=== PATIENT | male | born 1965 | race Caucasian/White ===

== ENCOUNTER 2024-12-20 13:25 | Emergency (ER) | payer OTHER, BC, SELFPAY ==
[2024-12-20 13:27] VITALS: BP 124/85; PULSE 93; RESP 18; TEMP 36.9; O2SAT 93; BMI 31.6
--- OUTSIDE RECORDS SUMMARY | 2024-12-20 13:28 | XMS_ITS | Encounter Summary ---
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 [facility] Address [address] [place] [address] Care Team Providers Care Store Consultant Name Role Phone PAULA WHITLEY Primary Care Provider Mark mead Insurance Providers: All historical and current Section Date Range: From patient's date of to the date document was created. This section includes the names of all active insurance providers for the patient. Insurance Provider Type of Coverage Plan Name Start of Policy Coverage End of Policy Coverage Group Number Member ID Insurance Provider's Telephone Number Policy Ragland's Name Patient's Relationship to Policy Ragland [place] W/HEALTH SAVINGS [facility]OUNT [facility] Aug 22, 2020 [id number] [phone] HARPREET LOPEZ PATIENT [place] H[place]AN W/HEALTH SAVINGS ACCOUNT [facility] Aug 22, 2020 [id number] [phone] HARPREET LOPEZ PATIENT [place] ([id number]) PRESCRIPT SHARATH YEUNG M RX [facility] Aug 22, 2020 [id number] [phone] HARPREET LOPEZ PATIENT [place] ([id number]) PRESCRIPT SHARATH YEUNG M RX [facility] Aug 22, 2020 [id number] [phone] HARPREET LOPEZ PATIENT Selected Encounter This section includes the information on record at [place] for the Encounter. Date/Time Encounter Type Encounter Description Reason Provider Source Mar 19, 2024 08:32 AM Outpatient Encounter AMBULATORY ALEX HENDERSON Encounter Template Text not used by [facility] Plan of Treatment: Future Appointments (+ 6 months) and Future Tests (+/- 45 days) The Plan of Treatment section includes [facility] care activities for the [facility] [place] [facility] This section includes future appointments and future orders which are active, pending or scheduled. Future Appointments This section includes appointments that were scheduled to occur 6 months from the date of the Encounter, up to a maximum of 20 appointments. The data comes from all [place] treatment facilities. Appointment Date/Time Appointment Type Appointme nt Facility Name 2024 11:00 AM AMBULATORY - SURGERY [facility] Apr 06, 2024 02:00 PM AMBULATORY - SURGERY [facility] Jun 26, 2024 02:48 PM AMBULATORY - NONE [facility] Jun 28, 2024 09:30 AM [facility]BUL[facility]ORY - MEDICINE [facility] Jul 10, 2024 06:17 PM AMBULATORY - MEDICINE [facility] Jul 21, 2024 01:14 PM AMBULATORY - MEDICINE [facility] Jul 25, 2024 09:00 AM AMBULATORY - MEDICINE [facility] Jul 25, 2024 09:30 AM AMBULATORY - SURGERY [facility] Aug 17, 2024 10:00 AM AMBULATORY - NONE [facility] Lab Results: +/- 30 days of the encounter This section includes the Chemistry and Hematology Lab Results on record with [place] for the patient. Radiology Reports and Pathology Reports are provided separately, in subsequent sections. Lab Results This section contains the Chemistry/Hematology Results that were resulted 30 days before or 30 daysafter the date of the Encounter. Date/Time Source Result Type Result - Unit Interpretation Reference Range Specimen Type Comment Mar 07, 2024 02:41 PM [facility] PROTHROMBIN TIME/INR PLASMA Specimen Type: PLASMA No comment entered. Ordering Provider: THIEN LOBATO Report Released Date/Time: Mar 01, 2024 07:49 AM Reporting Lab: [facility] [id number] Performing Lab: [facility] [id number] .INR 1.0 0.8-1.1 .PT 12.1 s 9.4-12.5 Mar 07, 2024 02:41 PM [facility] BASIC METABOLIC PANEL+MG PLASMA Spe cimen Type: PLASMA No comment entered. Ordering Provider: THIEN LOBATO Report Released Date/Time: Mar 01, 2024 07:49 AM Reporting Lab: [facility] [id number] Performing Lab: [facility] [id number] CREATININE 1.0 mg/dL 0.7-1.2 UREA NITROGEN 18 mg/dL 8-26 GLUCOSE 62 mg/dL L 70-100 SODIUM 140 mmol/L 136-145 POTASSIUM 4.1 mmol/L 3.5-5.1 CHLORIDE 111 mmol/L H 98-107 CO2 22 mmol/L 22-29 CALCIUM 9.2 mg/dL 8.4-10.2 MAGNESIUM 2.0 mg/dL 1.6-2.6 ANION GAP 7 mmol/L 5-15 .CREAT EGFR(CKD-EPI) 88 >60 Mar 07, 2024 02:41 PM [facility] ALBUMIN PLASMA Specimen Type: PLASMA No comment entered. Ordering Provider: THIEN LOBATO Report Released Date/Time: Mar 01, 2024 07:49 AM Reporting Lab: [facility] [phone] Performing Lab: [facility] [address] ALBUMIN 4.2 g/dL 3.5-5.2 Mar 07, 2024 02:41 PM [facility] CBC & DIFF BLOOD Specimen Type : BLOOD Comment: Automated Differential Performed Ordering Provider: THIEN LOBATO Report Released Date/Time: Mar 01, 2024 07:49 AM Reporting Lab: [facility] [phone] Performing Lab: [facility] [phone] WBC 7.18 10*3/uL 4.0-11.0 RBC 4.69 10*6/uL 4.6-6.2 HGB 14.1 g/dL 13.5-17.9 HCT 40.4 L 41-54 MCV 86.1 fL 80-100 MCH 30.1 pg 27-33 MCHC 34.9 g/dL 32.0-37.5 PLT 194 10*3/uL 150-400 MPV 9.8 fL 7.4-10.4 NEUT 66.5 40.0-80.0 LYMPHS 21.7 15.0-45.0 MONO 6.8 2.0-12.0 EOSINO 4.0 0.0-6.0 BASO 0.7 0.0-2.0 RDW 14.3 11.5-14.5 ABS LYMPH 1.56 10*3/uL 1.0-4.0 ABS MONO 0.49 10*3/uL 0.1-1.0 ABS NEUT 4.77 10*3/uL 2.0-7.7 ABS EOS 0.29 10*3/uL 0-0.5 ABS BASO 0.05 10*3/uL 0-0.2 IG(META,MYELO,PRO) 0.3 ABS IMMATURE GRAN 0.02 10*3/uL 0-0.1 Mar 07, 2024 02:41 PM [facility] HEMOGLOBIN A1C BLOOD Specimen Type: BLOOD Comment: Values obtained from A1C measurements can vary. For typical A1C assays, a reported value of 7.0 could actually be between 6.7 and 7.3 if measured by a reference method. A reported value of 9.0 could actually be between 8.7 and 9.3. Ref: http://www.ngsp.org/CAPdata.[email or web address] Ordering Provider: THIEN LOBATO Report Released Date/Time: Mar 01, 2024 07:49 AM Reporting Lab: [facility] [phone] Performing Lab: [facility] [phone] HEMOGLOBIN A1C 5.4 4.0-6.0 Vital Signs: All taken on the encounter date This section contains inpatient and outpatient Vital Signs collected on the date of the Encounter. Date/Time Temperature Pulse Blood Pressure Respiratory Rate SP02 Pain Height Weight Body Mass Index Source Mar 19, 2024 10:05 AM 98.1 77 102/61 16 93 0 [facility] Mar 19, 2024 06:58 AM 98.2 72 131/74 18 94 2 [facility] Pathology Reports: +/- 30 days of the encounter Pathology Reports For cases when an order for pathology services may have been completed prior to the date of the Encounter, the report list includes the Pathology Reports that were completed up to 30 days before dateof the Encounter. For cases when an order for pathology services may have been completed after the date of the Encounter, the report list also includes the Pathology Reports that were completed up to30 days after date of the Encounter. The data comes from all [facility] facilities. Date/Time Pathology Report Provider Source Mar 22, 2024 10:05 AM LR SURGICAL PATHOL [facility] REPORT: LOCAL TITLE: LR SURGICAL PATHOLOGY REPORT STANDARD TITLE: PATHOLOGY REPORT DATE OF NOTE: MAR 22, 2024@10:05:54 ENTRY DATE: MAR 22, 2024@10:05:54 AUTHOR: NITA TOSCANO EXP CELENAIGNER: URGENCY: STATUS: COMPLETED $APHDR Reporting Lab: [facility] [CLIA# [id number]] [place] [address] - - - - - - - - - - - - - - - - - - - - - - - - - - - - - - - - - - - - - - - - MEDICAL RECORD SURGICAL PATHOLOGY - - - - - - - - - - - - - - - - - - - - - - - - - - - - - - - - - - - - - - - - PATHOLOGY REPORT Accession No. [id number] - - - - - - - - - - - - - - - - - - - - - - - - - - - - - - - - - - - - - - - - $TEXT Submitted by: Date obtained: Mar 19, 2024 - - - - - - - - - - - - - - - - - - - - - - - - - - - - - - - - - - - - - - - - Specimen (Received Mar 20, 2024 08:27): LEFT FOOT SUB FIRST - - - - - - - - - - - - - - - - - - - - - - - - - - - - - - - - - - - - - - - - BRIEF CLINICAL HISTORY: Procedure: Removal of bursa left foot - - - - - - - - - - - - - - - - - - - - - - - - - - - - - - - - - - - - - - - - PREOPERATIVE DIAGNOSIS: Plantar bursa - - - - - - - - - - - - - - - - - - - - - - - - - - - - - - - - - - - - - - - - OPERATIVE FINDINGS: - - - - - - - - - - - - - - - - - - - - - - - - - - - - - - - - - - - - - - - - POSTOPERATIVE DIAGNOSIS: Plantar bursa Surgeon/physician: THIEN LOBATO Attending Surgeon: Thien Lobato =-=-=-=-=-=-=-=-=-=-=-=-=- =-=-=-=-=-=-=-=-=-=-=-=-=- =-=-=-=-=-=-=-=-=-=-=-=-=- = - - - - - - - - - - - - - - - - - - - - - - - - - - - - - - - - - - - - - - - - PATHOLOGY REPORT Accession No. [id number] - - - - - - - - - - - - - - - - - - - - - - - - - - - - - - - - - - - - - - - - GROSS DESCRIPTION: The requisition form and specimen(s) identification is confirmed. The specimen is received in formalin labeled left foot subfirst [facility] and consists of an unoriented skin excision of indurated brown-burden skin measuring 3.6 x 1.5 x 0.5 cm. Specimen is oriented by a suture that is arbitrarily designated as 12:00 margin; the 12:00 to 6:00 margin is inked black and the 6:00 to 12:00 margin is inked blue. Also submitted is a deep yellow to brown-burden fibrofatty soft tissue fragment measuring 2.5 x 2.5 x 1.5 cm. Summary of sections: A-C: Cross-sections, skin excision; D: 12:00 tip, en face; E: 6:00 tip, en face; F-G: Deep soft tissue fragment, bisected. CE. (D)[facility] MICROSCOPIC DESCRIPTION: Microscopic examination performed. DIAGNOSIS: Left foot, sub first, excision-- - Fragments of skin and subcutaneous tissue containing a ruptured epithelial inclusion cyst /es/ NITA TOSCANO STAFF PATHOLOGIST, PATHOLOGY & LABORATORY MED [facility] Signed Mar 22, 2024@10:05 Performing Laboratory: Surgical Pathology Report Performed By: [facility] [CLIA# [id number]] [place] [address] $FTR - - - - - - - - - - - - - - - - - - - - - - - - - - - - - - - - - - - - - - - - (End of report) NITA TOSCANO MD rks Date Mar 22, 2024 - - - - - - - - - - - - - - - - - - - - - - - - - - - - - - - - - - - - - - - - JOHN LOPEZ STANDARD FORM 515 ID:[id number] SEX:M :1965 AGE: 58 LOC:[id number] PCP: Paula Whitley /darrick/ NITA TOSCANO STAFF PATHOLOGIST, PATHOLOGY & LABORATORY MED [facility] Signed: 03/22/2024 10:05 NITA TOSCANO [facility] Mar 19, 2024 09:53 AM LR MICROBIOLOGY RE PORT: Reporting Lab: [facility] [CLIA# [id number]] [place] [address] Accession [UID]: [id number] [[id number]] Received: Mar 19, 2024@09:53 Collection sample: TISSUE Collection date: Mar 19, 2024 09:53 Provider: THIEN LOBATO Comment on specimen: 1) L FOOT SUB-FIRST NPJ MASS, RECEIVED IN ANAEROBIC TRANSPORT VIAL Test(s) ordered: ANAEROBIC CULTURE............. completed: Mar 26, 2024 * BACTERIOLOGY FINAL REPORT => Mar 26, 2024 15:04 TECH CODE: [id number] CULTURE RESULTS: NO ANAEROBES ISOLATED Bacteriology Remark(s): THIS REPORT IS FINAL =--=--=--=--=--=--=--=--=- -=--=--=--=--=--=--=--=--= --=--=--=--=--=--=--=--=-- Performing Laboratory: Bacteriology Report Performed By: [facility] [CLIA# [id number]] [place] [address] [facility] Mar 19, 2024 09:53 AM LR MICROBIOLOGY RE PORT: Reporting Lab: [facility] [CLIA# [id number]] [place] [address] Accession [UID]: [id number] [[id number]] Received: Mar 19, 2024@09:53 Collection sample: TISSUE Collection date: Mar 19, 2024 09:53 Provider: THIEN LOBATO Comment on specimen: 1) L FOOT SUB-FIRST NPJ MASS, RECEIVED IN ANAEROBIC TRANSPORT VIAL Test(s) ordered: KANDACE FUNGAL PREP............... completed: Mar 19, 2024 13:46 MYCOLOGY CULTURE.............. completed: Apr 17, 2024 * MYCOLOGY FINAL REPORT => Apr 17, 2024 10:19 TECH CODE: [id number] MYCOLOGY SMEAR/PREP: KANDACE PREP: NO FUNGAL ELEMENTS SEEN CULTURE PENDING Fungus/Yeast: NO FUNGI ISOLATED (4 WEEKS) Mycology Remark(s): THIS REPORT IS FINAL =--=--=--=--=--=--=--=--=- -=--=--=--=--=--=--=--=--= --=--=--=--=--=--=--=--=-- Performing Laboratory: Mycology Report Performed By: [facility] [CLIA# [id number]] [place] [address] [facility] Mar 19, 2024 09:53 AM LR MICROBIOLOGY RE PORT: Reporting Lab: [facility] [CLIA# [id number]] [place] [address] Accession [UID]: [id number] [[id number]] Received: Mar 19, 2024@09:53 Collection sample: TISSUE Collection date: Mar 19, 2024 09:53 Provider: THIEN LOBATO Comment on specimen: 1) L FOOT SUB-FIRST NPJ MASS, RECEIVED IN ANAEROBIC TRANSPORT VIAL Test(s) ordered: GRAM STAIN.................... completed: Mar 19, 2024 11:45 CULTURE & SUSCEPTIBILITY...... completed: Mar 23, 2024 * BACTERIOLOGY FINAL REPORT => Mar 23, 2024 13:49 TECH CODE: [id number] GRAM STAIN: DIRECT SMEAR of specimen before culturing shows: 2+ PMNS NO ORGANISMS SEEN CULTURE PENDING CULTURE RESULTS: STAPHYLOCOCCUS CAPITIS - Quantity: 1+ Comment: No susceptibility testing performed. Bacteriology Remark(s): THIS REPORT IS FINAL =--=--=--=--=--=--=--=--=- -=--=--=--=--=--=--=--=--= --=--=--=--=--=--=--=--=-- Performing Laboratory: Bacteriology Report Performed By: [facility] [CLIA# [id number]] [address] [place] [address] [facility]
--- OUTSIDE RECORDS SUMMARY | 2024-12-20 13:28 | XMS_ITS | Encounter Summary ---
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 Address [address] [place] [address] Care Team Providers Care Technical Documentation Specialist Name Role Phone DOMENIC GREENBERG Primary Care Provider Unavailabl e Insurance Providers: All historical and current Section [...] DEDUCTIBL E HEALTH PLAN W/HEALTH SAVINGS ACCOUNT [facility] Aug 22, 2020 [id number] AS1 [id number] [phone] HARPREET LOPEZ PATIENT [place] DEDUCTIBL E HEALTH PLAN W/HEALTH SAVINGS ACCOUNT [facility] Aug 22, 2020 [id number] [id number] [phone] HARPREET LOPEZ PATIENT [place] ([id number]) PRESCRIPT SHARATH [facility] Aug 22, 2020 [id number] [phone] HARPREET LOPEZ PATIENT [place] ([id number]) PRESCRIPT SHARATH YEUNG [facility] Aug 22, 2020 [id number] [phone] HARPREET LOPEZ PATIENT Selected Encounter This section includes the information on record at [place] for the Encounter. Date/Time Encounter Type Encounter Description Reason Provider Source Nov 07, 2024 09:00 AM OFFICE O/P EST MOD 30 MIN PODIATRY ICD-10-CM M72.2 Plantar fascial fibromatosis BRITTNI BURGESS Encounter Template Text not used by [facility] Assessments - Encounter Diagnoses This section includes the primary and secondary diagnoses documented for the Encounter. Date/Time Primary/Secondary Diagnosis Diagnosis Name Provider Source Nov 07, 2024 09:51 AM PRIMARY Plantar fascial fibromatosis BRITTNI BURGESS [facility] Nov 07, 2024 09:51 AM SECONDARY Cutaneous abscess of left foot BRITTNI BURGESS [facility] Plan of Treatment: Future Appointments (+ 6 months) and Future Tests (+/- 45 days) The Plan of Treatment section includes future care activities for the patient from all [place] [facility]. This section includes future appointments and future orders which are active, pending or scheduled. Future Appointments This section includes appointments that were scheduled to occur 6 months from the date of the Encounter, up to a maximum of 20 appointments. The data comes from all [place] treatment facilities. Appointment Date/Time Appointment Type Appointme nt Facility Name Nov 21, 2024 01:30 PM AMBULATORY - SURGERY [facility] Feb 21, 2025 01:30 PM AMBULATORY - SURGERY [facility] Lab Results: +/- 30 days of the encounter This section includes the Chemistry and Hematology Lab Results on record with [place] for the patient. Radiology Reports and Pathology Reports are provided separately, in subsequent sections. Lab Results This section contains the Chemistry/Hematology Results that were resulted 30 days before or 30 daysafter the date of the Encounter. Date/Time Source Result Type Result - Unit Interpretation Reference Range Specimen Type Comment Oct 11, 2024 03:[address] [facility] ALBUMIN PLASMA Specimen Type: PLASMA No comment entered. Ordering Provider: MILLIE PAIGE Report Released Date/Time: Oct 09, 2024 09:31 AM Reporting Lab: [facility] [address] Performing Lab: [facility] [address] ALBUMIN 3.9 g/dL 3.5-5.0 Oct 11, 2024 03:[address] [facility] HEMOGLOBIN A1C BLOOD Specimen Type: BLOOD Comment: Values obtained from A1C measurements can vary. For typical A1C assays, a reported value of 7.0 could actually be between 6.7 and 7.3 if measured by a reference method. A reported value of 9.0 could actually be between 8.7 and 9.3. Ref: http://www.ngsp.org/CAPdata.asp Ordering Provider: MILLIE PAIGE Report Released Date/Time: Oct 09, 2024 09:31 AM Reporting Lab: [facility] [address] Performing Lab: [facility] [address] HEMOGLOBIN A1C 5.4 4.0-6.0 Oct 11, 2024 03:[address] [facility] BASIC METABOLIC PANEL+MG PLASMA Spe cimen Type: PLASMA No comment entered. Ordering Provider: MILLIE PAIGE Report Released Date/Time: Oct 09, 2024 09:31 AM Reporting Lab: [facility] [address] Performing Lab: [facility] [address] CREATININE 1.2 mg/dL 0.7-1.2 UREA NITROGEN 19 mg/dL 8-26 GLUCOSE 98 mg/dL 70-100 SODIUM 140 mmol/L 136-145 POTASSIUM 4.2 mmol/L 3.5-5.1 CHLORIDE 113 mmol/L H 98-107 CO2 21 mmol/L L 22-29 CALCIUM 9.0 mg/dL 8.4-10.2 MAGNESIUM 1.8 mg/dL 1.6-2.6 ANION GAP 6 mmol/L 5-15 .CREAT EGFR(CKD-EPI) 71 >60 Oct 11, 2024 03:[address] [facility] CBC & DIFF BLOOD Specimen Type : BLOOD Comment: Automated Differential Performed Ordering Provider: MILLIE PAIGE Report Released Date/Time: Oct 09, 2024 09:31 AM Reporting Lab: [facility] [address] Performing Lab: [facility] [address] WBC 6.3 4.0-11.0 RBC 5.00 4.60-6.20 HGB 14.8 g/dL 13.5-17.9 HCT 43.9 41.0-54.0 MCV 87.8 fL 80.0-100.0 MCH 29.6 pg 27.0-33.0 MCHC 33.7 g/dL 32.0-37.5 PLT 191 150-400 MPV 10.1 fL 9.1-13.0 NEUT 66.8 40.0-80.0 LYMPHS 20.8 15.0-45.0 MONO 6.3 2.0-12.0 EOSINO 5.2 0.0-6.0 BASO 0.6 0.0-2.0 RDW 13.9 11.5-14.5 ABS LYMPH 1.3 1.0-4.0 ABS MONO 0.4 0.1-1.0 ABS NEUT 4.2 2.0-7.7 ABS EOS 0.3 0.0-0.5 ABS BASO 0.0 0.0-0.2 IG(META,MYELO,PRO) 0.3 ABS IMMATURE GRAN 0.0 0.0-0.1 Radiology Reports: +/- 30 days of the encounter Radiology Reports For cases when an order for radiology services may have been completed prior to the date of the Encounter, the report list includes the Radiology Reports that were completed up to 30 days before dateof the Encounter. For cases when an order for radiology services may have been completed after the date of the Encounter, the report list also includes the Radiology Reports that were completed up to30 days after date of the Encounter. The data comes from all [place] treatment facilities. Date/Time Radiology Report Provider Source Oct 30, 2024 08:34 AM LDCT LUNG CANCER S CREENING: JOHN LOPEZ [id number] M Exm Date: OCT 30, 2024@08:34 Req Phys: DOMENIC GREENBERG Pat Loc: [facility] PULM CHART CHECK [facility]CS (Req' Img Loc: CT IMAGING Service: [place] [address] (Case [id number] COMPLETE) LDCT LUNG CANCER SCREENING (CT Detailed) CPT:31405 Reason for Study: LDCT f/u LUNGRADS 2b pulm nodule (FOLLOW UP) Clinical History: IS NOT under investigation for COVID-19 or is COVID-19 negative LDCT f/u LUNGRADS 2b pulm nodule (FOLLOW UP) Responsible provider name and phone number to notify for critical findings if other than user placing the order and pager listed below: User placing orders pager: LAST 3: Collection DT Specimen Test Name Result Units Ref Range 10/21/2023 10:14 PLASMA CREATININE 1.0 mg/dL 0.7 - 1.2 10/22/2022 10:38 PLASMA CREATININE 0.9 mg/dL 0.7 - 1.2 01/12/2022 14:08 PLASMA CREATININE 1.0 mg/dL 0.7 - 1.2 10/21/2023 10:14 PLASMA .CREAT EGFR(CKD-E 88 Ref: >=60 10/22/2022 10:38 PLASMA .CREAT EGFR(CKD-E >90 Ref: >=60 01/12/2022 14:08 PLASMA .CREAT EGFR(CKD-E 89 Ref: >=60 Allergies: Patient has answered NKA Report Status: Verified Date Reported: OCT 30, 2024 Date Verified: OCT 30, 2024 Project Management Intern E-Sig:/ES/ROGER CHAUHAN MD Report: EXAM: LDCT LUNG CANCER SCREENING COMPARISON: Low dose noncontrast screening chest CT dated 11/02/2023. PROTOCOL: Screening protocol, low dose, non-contrast CT chest was performed in accordance with Lung-Rads 2021. Additional coronal and sagittal reconstructions. MIP reconstructions were reviewed. Secondary computer-aided detection post-processing used. DOSE PARAMETERS: DLP: 67.81, mGy.cm/CTDIvol Mean: 1.4, mGy. INDEX NODULE: Location: Left Lower Lobe Series: 4 Image: 204 Density: Solid Solid diameter (average): 4 mm Other characteristics: N/A Change: Stable, previously measuring 4 mm Comments: Interval increase in surrounding atelectasis OTHER NODULES: Stable 2 mm solid nodule in the anterolateral periphery of the left lower lobe (series 4, image 159). Stable benign calcified granulomas in the lingula. No suspicious new or enlarging pulmonary nodules. OTHER-INCIDENTAL FINDINGS: Increase in left lower lobe atelectasis, now mild to moderate in overall degree with linear and bandlike components in the basal segments. Increase in minimal bibasilar dependent atelectatic changes. Persistent mild centrilobular emphysema. Persistent mild coronary artery calcification. Persistent mild bilateral gynecomastia. Again status post gastric bypass surgery. Impression: LUNG-RADS: 2: Benign RECOMMENDATION: One year follow-up low dose CT, if patient meets screening criteria. SIGNIFICANT INCIDENTAL FINDING (S CODE): N/A OTHER SIGNIFICANT FINDINGS AND RECOMMENDATIONS: Interval increase in lower lobe atelectasis, now mild to moderate on the left and minimal on the right. Persistent mild centrilobular emphysema. Report Sign Date/Time: 10/30/2024 9:52 AM Primary Interpreting Staff: ROGER CHAUHAN MD, RADIOLOGIST (Project Management Intern) /[facility] ROGER CHAUHAN [facility] Pathology Reports: +/- 30 days of the [...] the Encounter. The data comes from all [place] treatment facilities. Date/Time Pathology Report Provider Source Oct 15, 2024 09:55 AM LR MICROBIOLOGY RE PORT: Reporting Lab: [facility] [CLIA# [id number]] [place] [address] Accession [UID]: [id number] [[id number]] Received: Oct 15, 2024@09:55 Collection sample: TISSUE Collection date: Oct 15, 2024 09:55 Provider: THIEN BURGESS Comment on specimen: 1. left foot cyst, RECEIVED IN ANAEROBIC TRANSPORT VIAL Test(s) ordered: ANAEROBIC CULTURE............. completed: Oct 22, 2024 * BACTERIOLOGY FINAL REPORT => Oct 22, 2024 15:49 TECH CODE: [id number] CULTURE RESULTS: FINEGOLDIA MAGNA - Quantity: 3+ Comment: No susceptibility testing performed. Bacteriology Remark(s): THIS REPORT IS FINAL =--=--=--=--=--=--=--=--=--=--=--=- -=--=--=--=--=--=--=--=--=--=--=--= --=--=-- Performing Laboratory: Bacteriology Report Performed By: [facility] [CLIA# [id number]] [place] [address] [facility] Oct 15, 2024 09:54 AM LR MICROBIOLOGY RE PORT: Reporting Lab: [facility] [CLIA# [id number]] [place] [address] Accession [UID]: [id number] [[id number]] Received: Oct 15, 2024@09:55 Collection sample: TISSUE Collection date: Oct 15, 2024 09:54 Provider: THIEN BURGESS Comment on specimen: 1. left foot cyst, RECEIVED IN ANAEROBIC TRANSPORT VIAL Test(s) ordered: AFB SMEAR..................... completed: Oct 17, 2024 07:56 AFB CULTURE................... completed: Dec 03, 2024 * MYCOBACTERIOLOGY FINAL REPORT => Dec 03, 2024 14:23 TECH CODE: [id number] Acid Fast Stain: NEGATIVE Mycobacterium: NO MYCOBACTERIA ISOLATED Mycobacteriology Remark(s): Test performed by [facility] [place] [address] THIS REPORT IS FINAL =--=--=--=--=--=--=--=--=--=--=--=- -=--=--=--=--=--=--=--=--=--=--=--= --=--=-- Performing Laboratory: Mycobacteriology Report Performed By: [facility] [CLIA# [id number]] [place] [address] [facility] Oct 15, 2024 09:54 AM LR MICROBIOLOGY RE PORT: Reporting Lab: [facility] [CLIA# [id number]] [place] [address] Accession [UID]: [id number] [[id number]] Received: Oct 15, 2024@09:54 Collection sample: TISSUE Collection date: Oct 15, 2024 09:54 Provider: THIEN BURGESS Comment on specimen: 1. left foot cyst, RECEIVED IN ANAEROBIC TRANSPORT VIAL Test(s) ordered: KANDACE FUNGAL PREP............... completed: Oct 15, 2024 12:12 MYCOLOGY CULTURE.............. completed: Nov 12, 2024 * MYCOLOGY FINAL REPORT => Nov 12, 2024 09:48 TECH CODE: [id number] MYCOLOGY SMEAR/PREP: KANDACE PREP: NO FUNGAL ELEMENTS SEEN CULTURE PENDING Fungus/Yeast: NO FUNGI ISOLATED (4 WEEKS) Mycology Remark(s): THIS REPORT IS FINAL =--=--=--=--=--=--=--=--=--=--=--=- -=--=--=--=--=--=--=--=--=--=--=--= --=--=-- Performing Laboratory: Mycology Report Performed By: [facility] [CLIA# [id number]] [place] [address] [facility] Oct 15, 2024 09:54 AM LR MICROBIOLOGY RE PORT: Reporting Lab: [facility] [CLIA# [id number]] [place] [address] Accession [UID]: [id number] [[id number]] Received: Oct 15, 2024@09:54 Collection sample: TISSUE Collection date: Oct 15, 2024 09:54 Provider: THIEN BURGESS Comment on specimen: 1. left foot cyst, RECEIVED IN ANAEROBIC TRANSPORT VIAL Test(s) ordered: GRAM STAIN.................... completed: Oct 15, 2024 11:27 CULTURE & SUSCEPTIBILITY...... completed: Oct 19, 2024 * BACTERIOLOGY FINAL REPORT => Oct 19, 2024 11:08 TECH CODE: [id number] GRAM STAIN: DIRECT SMEAR of specimen before culturing shows: NO PMNS SEEN 1+ GRAM POSITIVE COCCI IN PAIRS CULTURE PENDING CULTURE RESULTS: 1. NO AEROBIC GROWTH 2. ANAEROBES MAY BE PRESENT Comment: POSSIBLE ANAEROBIC GRAM POSITIVE COCCI SEE AN 1067 Bacteriology Remark(s): THIS REPORT IS FINAL =--=--=--=--=--=--=--=--=--=--=--=- -=--=--=--=--=--=--=--=--=--=--=--= --=--=-- Performing Laboratory: Bacteriology Report Performed By: [facility] [CLIA# [id number]] [address] [place] [address] [facility] Encounter Notes: All associated encounter notes This section contains the clinical notes associated to the Encounter. Date/Time Encounter Note(s) Provider Source Nov 07, 2024 09:15 AM PODIATRY ATTENDING NOTE: LOCAL TITLE: PODIATRY CLINIC NOTE STANDARD TITLE: PODIATRY ATTENDING NOTE DATE OF NOTE: NOV 07, 2024@09:15 ENTRY DATE: NOV 07, 2024@09:15:45 AUTHOR: THIEN BURGESS COSIGNER: URGENCY: STATUS: COMPLETED Chief Complaint: This 59 year old MALE presents to podiatry for follow-up wound care s/p 3 weeks I and D of 1st mpj wound, left foot. Pt. presents in regular tennis shoe today. He also has no bandage on the wound. Past Medical History: Degenerative disc disease ([facility] [id number])Erectile Dysfunction ([facility] [id number]) Insomnia ([facility] [id number]) Plantar fasciitis ([facility] [id number]) Rubella ([facility] [id number]) Varicose veins of bilateral lower limbs ([facility] [id number]) History of gastric bypass ([facility] [id number] to potentially hazardous substance ([facility] [id number]) Allergies: Patient has answered NKA Current Medications: Active Outpatient Medications (including Supplies): APPLICATOR,COTTON TIP STERILE 1 APPLICATOR TOPICALLY ACTIVE DIRECTED TO PACK WITH IODOFORM Indication: WOUND BANDAGE,STRETCH,ROSIDAL K 1OCM X 5M USE 1 BANDAGE ACTIVE TOPICALLY DIRECTED DRESS,MEPILEX BORDER FLEX 4X4IN #[id number] APPLY 1 DRESSING ACTIVE TOPICALLY DIRECTED FOOT WOUND Indication: FOOT WOUND DRESSING NON-ADHERE OIL/EMULSION [id number] APPLY DRESSING(S) ACTIVE TOPICALLY EVERY DAY TO SURGICAL SITE, Indication: POST OP FERROUS SULFATE 325MG TAB TAKE ONE TABLET BY MOUTH EVERY ACTIVE DAY Indication: FOR ANEMIA GAUZE PAD 4IN X 4IN 8-PLY NONSTERILE USE GAUZE SPONGE ACTIVE TOPICALLY EVERY DAY FOR POST-OP WOUND CARES, APPLY TO SURGICAL SITE DIRECTED Indication: POST OP GAUZE,PACKING PLAIN 1/2IN X 5YD USE GAUZE DIRECTED ACTIVE POST OP Indication: POST OP GLOVE LATEX LARGE PWDR-FREE NONSTERILE USE GLOVE(S) ACTIVE DIRECTED POST OP Indication: POST OP HYDROCODONE 5MG/ACETAMINOPHEN 325MG TAB TAKE 1 TABLET BY ACTIVE MOUTH EVERY 4 HOURS NEEDED Indication: FOR PAIN KERLIX 4.5IN STERILE USE 1 BANDAGE TOPICALLY EVERY DAY TO ACTIVE SURGICAL SITE Indication: POST OP NICOTINE 14MG/24HR PATCH APPLY 1 PATCH TOPICALLY EVERY DAY HOLD Indication: TO QUIT TOBACCO NICOTINE 7MG/24HR PATCH APPLY 1 PATCH TOPICALLY EVERY DAY HOLD Indication: TO QUIT TOBACCO TADALAFIL 20MG TAB TAKE ONE TABLET BY MOUTH ONCE NEEDED ACTIVE (S) Indication: FOR ERECTILE DYSFUNCTION TAPE,MEDIPORE H SOFT 4IN X 10YD 3M#2864 CUT AND APPLY TAPE ACTIVE TOPICALLY EVERY DAY FOR WOUND CARES DIRECTED Indication: POST OP ZOLPIDEM TARTRATE 12.5MG SA TAB TAKE ONE TABLET BY MOUTH ACTIVE (S) AT BEDTIME Indication: FOR SLEEP Non-VA CALCIUM CARBONATE TAB 500MG MOUTH EVERY DAY ACTIVE Non-VA CHOLECALCIF 25MCG (D3-1,000UNIT) TAB 50MCG MOUTH ACTIVE EVERY DAY Non-VA MAGNESIUM TAB 250 MG EVERY DAY ACTIVE Non-VA MULTIVITAMIN CAP/TAB 2 TABLETS MOUTH EVERY DAY ACTIVE Non-VA TADALAFIL 10MG TAB 10MG MOUTH EVERY DAY NEEDED ACTIVE Non-VA ZOLPIDEM TARTRATE 12.5MG SA TAB 12.5MG MOUTH AT ACTIVE BEDTIME 21 Total Medications Review of Systems:No fever, chills, nausea, vomiting, shortness of breath, chest pain, calf pain noted. Physical Exam: Constitution: Well-developed and well-nourished. Gait appears antalgic. No apparent distress. Alert and oriented to person, place, and time. Integument: There are no varicosities. Skin appears moist, warm, and supple with positive hair growth. There are no color changes. No open lesions. No macerations. skin appears healthy with no purulent drainage from the wound, borders of wound are hyperkeratotic. Vascular examination: Dorsalis pedis and posterior tibial pulses are strong bilaterally with capillary filling time less than 3 seconds to all digits. Hair is present to all digits bilaterally. There is mild peripheral edema. Neurological Sensorium: Grossly intact to light touch, and sharp/dull. Vibratory: Intact. Musculoskeletal: Joints are congruous, equal. Muscle strength is 5/5, to all compartments bilaterally. Arch height appears normal. palpable hardware on 5th metatarsal but at the level of the glaborous junction. Not painful to patient. Assessment: s/p 3 weeks I and D left foot Plan RTC 2 weeks Start daily dressing changes with iodosorb, meplex. Continue to keep off the foot to aid in healing. Decrease smoking. Pt. 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
--- OUTSIDE RECORDS SUMMARY | 2024-12-20 13:28 | XMS_ITS | Encounter Summary ---
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 Name Role Phone DOMENIC GREENBERG Primary Care [...] DEDUCTIBL E HEALTH PLAN W/HEALTH SAVINGS ACCOUNT [facility] Aug 22, 2020 [id number] [id number] [phone] HARPREET LOPEZ PATIENT [place] H[place] DEDUCTIBL E HEALTH PLAN W/HEALTH SAVINGS ACCOUNT [facility] Aug 22, 2020 [id number] [id number] [phone] HARPREET LOPEZ PATIENT [place] ([id number]) PRESCRIPNy [facility] Aug 22, 2020 [id number] [phone] HARPREET LOPEZ PATIENT [place] ([id number]) PRESCRIPNy [facility] Aug 22, 2020 [id number] [phone] HARPREET LOPEZ PATIENT Selected Encounter This section includes the information on record at [place] for the Encounter. Date/Time Encounter Type Encounter Description Reason Provider Source Oct 26, 2024 09:00 AM Outpatient Encounter PRIMARY CARE/MEDICINE ICD-10-CM Z00.00 Encntr for general adult medical exam w/o abnormal findings DOMENIC GREENBERG [facility] Encounter Template Text not used by [facility] Assessments - Encounter Diagnoses This section includes the primary and secondary diagnoses documented for the Encounter. Date/Time Primary/Secondary Diagnosis Diagnosis Name Provider Source Nov 07, 2024 12:45 PM PRIMARY Encntr for general adult medical exam w/o abnormal findings DIONICIODOMENICKody [facility] Nov 07, 2024 12:45 PM SECONDARY Contact with and exposure to other hazardous substances RENATOBIANCA LITTLE AKASH [facility] Plan of Treatment: Future Appointments (+ 6 months) and Future Tests (+/- 45 days) The Plan of Treatment section includes future care activities for the patient from all [place] [facility]. This section includes future appointments and future orders which are active, pending or scheduled. Future Appointments This section includes appointments that were scheduled to occur 6 months from the date of the Encounter, up to a maximum of 20 appointments. The data comes from all [place] treatment facilities. Appointment Date/Time Appointment Type Appointme nt Facility Name Oct 30, 2024 08:30 AM AMBULATORY - NONE [facility] Nov 07, 2024 09:00 AM AMBULATORY - SURGERY [facility] Nov 21, 2024 01:30 PM AMBULATORY - SURGERY [facility] Feb 21, 2025 01:30 PM AMBULATORY - SURGERY [facility] Lab Results: +/- 30 days of the encounter This section includes the Chemistry and Hematology Lab Results on record with ME for the patient. Radiology Reports and Pathology Reports are provided separately, in subsequent sections. Lab Results This section contains the Chemistry/Hematology Results that were resulted 30 days before or 30 daysafter the date of the Encounter. Date/Time Source Result Type Result - Unit Interpretation Reference Range Specimen Type Comment Oct 11, 2024 03:40 PM [facility] ALBUMIN PLASMA Specimen Type: PLASMA No comment entered. Ordering Provider: MILLIE PAIGE Report Released Date/Time: Oct 09, 2024 09:31 AM Reporting Lab: [facility] [address] Performing Lab: [facility] [address] ALBUMIN 3.9 g/dL 3.5-5.0 Oct 11, 2024 03:40 PM [facility] BASIC METABOLIC PANEL+MG PLASMA Spe cimen Type: PLASMA No comment entered. Ordering Provider: MILLIE PAIGE Report Released Date/Time: Oct 09, 2024 09:31 AM Reporting Lab: [facility] [address] Performing Lab: [facility] [address] CREATININE 1.2 mg/dL 0.7-1.2 UREA NITROGEN 19 mg/dL 8-26 GLUCOSE 98 mg/dL 70-100 SODIUM 140 mmol/L 136-145 POTASSIUM 4.2 mmol/L 3.5-5.1 CHLORIDE 113 mmol/L H 98-107 CO2 21 mmol/L L 22-29 CALCIUM 9.0 mg/dL 8.4-10.2 MAGNESIUM 1.8 mg/dL 1.6-2.6 ANION GAP 6 mmol/L 5-15 .CREAT EGFR(CKD-EPI) 71 >60 Oct 11, 2024 03:40 PM [facility] HEMOGLOBIN A1C BLOOD Specimen Type: [...] Oct 09, 2024 09:31 AM Reporting Lab: [facility] [id number] Performing Lab: [facility] [address] HEMOGLOBIN A1C 5.4 4.0-6.0 Oct 11, 2024 03:40 PM [facility] CBC & DIFF BLOOD Specimen Type : BLOOD Comment: Automated Differential Performed Ordering Provider: MILLIE PAIGE Report Released Date/Time: Oct 09, 2024 09:31 AM Reporting Lab: [facility] [phone] Performing Lab: [facility] [address] WBC 6.3 4.0-11.0 RBC 5.00 4.60-6.20 HGB [...] IG(META,MYELO,PRO) 0.3 ABS IMMATURE GRAN 0.0 0.0-0.1 Vital Signs: All taken on the encounter date This section contains inpatient and outpatient Vital Signs collected on the date of the Encounter. Date/Time Temperature Pulse Blood Pressure Respiratory Rate SP02 Pain Height Weight Body Mass Index Source Oct 26, 2024 09:09 AM 98.6 77 126/80 20 95 0 74 256.1 33 JAMES DOLAN Social History: Smoking Status (Most current) and Tobacco Use (All prior to encounter date) This section includes the most current, and the historical, smoking and tobacco- related health factors from the ME facility where the Encounter took place. Current Smoking Status This section includes the most current smoking, or tobacco-related health factor, from the ME facility where the Encounter took place. Date/Time Current Smoking Status Comment Facil ity Oct 26, 2024 09:00 AM VA-TOBACCO USE SOME DAYS CIGARET OSCAR JAMES DOLAN Tobacco Use History This section includes a history of the smoking, or tobacco-related health factors, that were collected on or before the date of the Encounter. The data comes from the ME facility where the Encounter took place. Date/Time Smoking Status/Tobacco Use Comment F acility Oct 26, 2024 09:00 AM VA-TOBACCO USE SOME DAYS CIGARET OSCAR [facility] Oct 21, 2023 10:00 AM VA-TOBACCO DOESNT USE WI 30 MIN WAKEUP [facility] Oct 21, 2023 10:00 AM VA-TOBACCO USE 30 YEARS OR MORE [facility] Oct 21, 2023 10:00 AM VA-TOBACCO USE ADVICE [facility]AMES C [facility] Oct 21, 2023 10:00 AM VA-TOBACCO USE ORDER BUILDER NO [facility] C [facility] Oct 21, 2023 10:00 AM VA-TOBACCO USE MED NO [facility] C [facility] Oct 21, 2023 10:00 AM VA-TOBACCO USER EVERY DAY [facility] C [facility] Oct 22, 2022 10:00 AM VA-TOBACCO DOESNT USE WI 30 MIN WAKEUP [facility]AMES C [facility] Oct 22, 2022 10:00 AM VA-TOBACCO USE 30 YEARS OR MORE [facility] C [facility] Oct 22, 2022 10:00 AM VA-TOBACCO USE ADVICE [facility] C [facility] Oct 22, 2022 10:00 AM VA-TOBACCO USE ORDER BUILDER NO [facility] C [facility] Oct 22, 2022 10:00 AM VA-TOBACCO USE MED NO [facility] C [facility] Oct 22, 2022 10:00 AM VA-TOBACCO USER EVERY DAY [facility] C [facility] Oct 23, 2021 01:30 PM VA-TOBACCO DOESNT USE WI 30 MIN WAKEUP [facility]AMES C [facility] Oct 23, 2021 01:30 PM VA-TOBACCO USE 30 YEARS OR MORE [facility] C [facility] Oct 23, 2021 01:30 PM VA-TOBACCO USE ADVICE [facility] C [facility] Oct 23, 2021 01:30 PM VA-TOBACCO USE ORDER BUILDER NO [facility]AMES C [facility] Oct 23, 2021 01:30 PM VA-TOBACCO USE MED NO [facility] C [facility] Oct 23, 2021 01:30 PM VA-TOBACCO USER SOME DAYS [facility] C [facility] Radiology Reports: +/- 30 days of the [...] the Encounter. The data comes from all [place] treatment facilities. Date/Time Radiology Report Provider Source Oct 30, 2024 08:34 AM LDCT LUNG CANCER S CREENING: JESSICAJOHN RAYMOND [id number] -[id number] M Exm Date: OCT 30, 2024@08:34 Req Phys: DOMENIC GREENBERG Pat Loc: [facility] PULM CHART CHECK [facility] (Req' Img Loc: CT IMAGING Service: [place] [address] (Case [id number] COMPLETE) LDCT LUNG CANCER SCREENING (CT Detailed) CPT:61504 Reason for Study: LDCT f/u LUNGRADS 2b pulm nodule (FOLLOW UP) Clinical History: Ozan IS NOT under investigation for COVID-19 or [...] 30, 2024 Date Verified: OCT 30, 2024 Rn Orthopaedic E-Sig:/ES/ROGER CHAUHAN MD Report: EXAM: LDCT LUNG CANCER SCREENING COMPARISON: Low dose noncontrast screening chest CT dated 11/02/2023. PROTOCOL: Screening protocol, low dose, non-contrast CT chest was performed in accordance with Lung-Rads 2022. Additional coronal and sagittal reconstructions. MIP reconstructions [...] Primary Interpreting Staff: ROGER CHAUHAN MD, RADIOLOGIST (Rn Orthopaedic) /[facility] ROGER CHAUHAN [facility] Pathology Reports: +/- 30 days [...] the Encounter. The data comes from all [place] treatment facilities. Date/Time Pathology Report Provider Source Oct 15, 2024 09:55 AM LR MICROBIOLOGY RE PORT: Reporting Lab: [facility] [CLIA# [id number]] [place] [address] Accession [UID]: [id number] [[id number]] Received: Oct 15, 2024@09:55 Collection sample: TISSUE Collection date: Oct 15, 2024 09:55 Provider: THIEN LOBATO Comment on specimen: 1. left foot cyst, RECEIVED IN ANAEROBIC TRANSPORT VIAL Test(s) ordered: ANAEROBIC CULTURE............. completed: Oct 22, 2024 * BACTERIOLOGY FINAL REPORT => Oct 22, 2024 15:49 TECH CODE: [id number] CULTURE RESULTS: JANE MAZA - Quantity: 3+ Comment: No susceptibility testing performed. Bacteriology Remark(s): THIS REPORT IS FINAL =--=--=--=--=--=--=--=--=--=--=--=- -=--=--=--=--=--=--=--=--=--=--=--= --=--=-- Performing Laboratory: Bacteriology Report Performed By: [facility] [CLIA# [id number]] [place] [address] [facility] Oct 15, 2024 09:54 AM LR MICROBIOLOGY RE PORT: Reporting Lab: [facility] [CLIA# [id number]] [place] [address] Accession [UID]: [id number] [[id number]] Received: Oct 15, 2024@09:55 Collection sample: TISSUE Collection date: Oct 15, 2024 09:54 Provider: THIEN LOBATO Comment on specimen: 1. left foot cyst, RECEIVED IN ANAEROBIC TRANSPORT VIAL Test(s) ordered: AFB SMEAR..................... completed: Oct 17, 2024 07:56 AFB CULTURE................... completed: Dec 03, 2024 * MYCOBACTERIOLOGY FINAL REPORT => Dec 03, 2024 14:23 TECH CODE: [id number] Acid Fast Stain: NEGATIVE Mycobacterium: NO MYCOBACTERIA ISOLATED Mycobacteriology Remark(s): Test performed by [facility] [place] [address] THIS REPORT IS FINAL =--=--=--=--=--=--=--=--=--=--=--=- -=--=--=--=--=--=--=--=--=--=--=--= --=--=-- Performing Laboratory: Mycobacteriology Report Performed By: [facility] [CLIA# [id number]] [place] [address] [facility] Oct 15, 2024 09:54 AM LR MICROBIOLOGY RE PORT: Reporting Lab: [facility] [CLIA# [id number]] [place] [address] Accession [UID]: [id number] [[id number]] Received: Oct 15, 2024@09:54 Collection sample: TISSUE Collection date: Oct 15, 2024 09:54 Provider: THIEN LOBATO Comment on specimen: 1. left foot cyst, RECEIVED IN ANAEROBIC TRANSPORT VIAL Test(s) ordered: KANDACE FUNGAL PREP............... completed: Oct 15, 2024 12:12 MYCOLOGY CULTURE.............. completed: Nov 12, 2024 * MYCOLOGY FINAL REPORT => Nov 12, 2024 09:48 TECH CODE: [id number] MYCOLOGY SMEAR/PREP: KANDACE PREP: NO FUNGAL ELEMENTS SEEN CULTURE PENDING Fungus/Yeast: NO FUNGI ISOLATED (4 WEEKS) Mycology Remark(s): THIS REPORT IS FINAL =--=--=--=--=--=--=--=--=--=--=--=- -=--=--=--=--=--=--=--=--=--=--=--= --=--=-- Performing Laboratory: Mycology Report Performed By: [facility] [CLIA# [id number]] [place] [address] [facility] Oct 15, 2024 09:54 AM LR MICROBIOLOGY RE PORT: Reporting Lab: [facility] [CLIA# [id number]] [place] [address] Accession [UID]: [id number] [[id number]] Received: Oct 15, 2024@09:54 Collection sample: TISSUE Collection date: Oct 15, 2024 09:54 Provider: THIEN LOBATO Comment on specimen: 1. left foot cyst, RECEIVED IN ANAEROBIC TRANSPORT VIAL Test(s) ordered: GRAM STAIN.................... completed: Oct 15, 2024 11:27 CULTURE & SUSCEPTIBILITY...... completed: Oct 19, 2024 * BACTERIOLOGY FINAL REPORT => Oct 19, 2024 11:08 TECH CODE: [id number] GRAM STAIN: DIRECT SMEAR of specimen before culturing shows: NO PMNS SEEN 1+ GRAM POSITIVE COCCI IN PAIRS CULTURE PENDING CULTURE RESULTS: 1. NO AEROBIC GROWTH 2. ANAEROBES MAY BE PRESENT Comment: POSSIBLE ANAEROBIC GRAM POSITIVE COCCI SEE AN [id number] Bacteriology Remark(s): THIS REPORT IS FINAL =--=--=--=--=--=--=--=--=--=--=--=- -=--=--=--=--=--=--=--=--=--=--=--= --=--=-- Performing Laboratory: Bacteriology Report Performed By: [facility] [CLIA# [id number]] [place] [address] [facility] Oct 07, 2024 06:14 AM LR MICROBIOLOGY RE PORT: Reporting Lab: [facility] [CLIA# [id number]] [place] [address] Accession [UID]: [id number] [[id number]] Received: Oct 07, 2024@06:25 Collection sample: WOUND Collection date: Oct 07, 2024 06:14 Provider: BASSAM AVILEZ Comment on specimen: L FOOT, SWAB RECEIVED Test(s) ordered: GRAM STAIN.................... completed: Oct 07, 2024 08:33 CULTURE & SUSCEPTIBILITY...... completed: Oct 10, 2024 * BACTERIOLOGY FINAL REPORT => Oct 10, 2024 07:45 TECH CODE: [id number] GRAM STAIN: DIRECT SMEAR of specimen before culturing shows: 2+ PMNS 3+ GRAM POSITIVE COCCI IN PAIRS SUGGESTIVE OF STAPH, STREP, OR ENTEROCOCCUS CULTURE PENDING CULTURE RESULTS: STAPHYLOCOCCUS EPIDERMIDIS - Quantity: 2+ Comment: No susceptibility testing performed. Bacteriology Remark(s): THIS REPORT IS FINAL =--=--=--=--=--=--=--=--=--=--=--=- -=--=--=--=--=--=--=--=--=--=--=--= --=--=-- Performing Laboratory: Bacteriology Report Performed By: [facility] [CLIA# [id number]] [address] [place] [address] [facility] Encounter Notes: All associated encounter notes This section contains the clinical notes associated to the Encounter. Date/Time Encounter Note(s) Provider Source Oct 26, 2024 09:11 AM PRIMARY CARE RICHA SEBASTIAN NOTE: LOCAL TITLE: [facility] NURSING PROGRESS NOTE STANDARD TITLE: PRIMARY CARE NURSING NOTE DATE OF NOTE: OCT 26, 2024@09:11 ENTRY DATE: OCT 26, 2024@09:11:21 AUTHOR: BIANCA LEO EXP COSIGNER: URGENCY: STATUS: COMPLETED TYPE OF VISIT: Appointment Check In Type of appointment: In-person appointment REASON FOR VISIT: Annual ALLERGIES: Patient has answered NKA VITAL SIGNS: Blood Pressure: 126/80 (10/26/2024 09:09) Pulse: 77 (10/26/2024 09:09) Respiration: 20 (10/26/2024 09:09) Temperature: 98.6 F [37.0 C] (10/26/2024 09:09) Weight: 256.1 lb [116.17 kg] (10/26/2024 09:09) Height: 74 in [188.0 cm] (10/26/2024 09:09) BMI: 33.0 O2 Sat: 95% (10/26/2024 09:09) Pain: 0 (10/26/2024 09:09) Tobacco Use Screening: The patient smokes cigarettes some days. The patient has never used other types of tobacco. Depression Screening: Perform PHQ-2 A PHQ-2 screen was performed. The score was 0 which is a negative screen for depression. Over the past two weeks, how often have you been bothered by the following problems? 1. Little interest or pleasure in doing things Not at all 2. Feeling down, depressed, or hopeless Not at all Alcohol Use Screen (AUDIT-C): Alcohol Screen: SCREEN FOR ALCOHOL (AUDIT-C) An alcohol screening test (AUDIT-C) was negative (score=1). 1. How often did you have a drink containing alcohol in the past year? Consider a drink to be a 12 ounce can or bottle of regular beer, 8 ounces of malt liquor, a 5 ounce glass of table wine, or a 1.5 ounce shot of liquor (like scotch, gin, or vodka). Monthly or less 2. How many drinks containing alcohol did you have on a typical day when you were drinking in the past year? One or two drinks 3. How often did you have six or more drinks on one occasion in the past year? Never Nursing Annual Screening: Whole Health Screen is due OR due soon (within 90 days). Fall History Screen During the past 12 months, have you had any falls? Patient does not report any falls in the past 12 months. MEDICATIONS: Patient is on one of the following medication classes: Antihypertensives, Antidepressants, Antipsychotics, Diuretics, or Controlled substance medication used for pain. Script Talk Screen Are you able to read your prescription bottles with your glasses, magnifiers or other aids? Yes or patient not taking any prescriptions. Skin Screen Patient reports any current pressure ulcers, a history of pressure ulcers, or a wound from a medical chief technician or Patient is bed-confined or a wheelchair-user or Patient requires assistance to transfer/change position No, Skin Screen is Negative Home Abuse/Violence Screen Is your home free of abuse and violence? Yes Outpatient Nutrition Screen Body Mass Index (BMI)= 33.0 [place]: Collection DT Specimen Test Name Result Units Ref Range 10/11/2024 15:40 BLOOD !! HEMOGLOBIN A1C 5.4 % 4.0 - 6.0 !! Indicates COMMENTS AVAILABLE...Refer to Interim Lab Report. [place] Hgb A1C: No data available [place] Hgb A1C: No data available Point of Care Hgb A1C: POC HGB A1C____ Is patient's BMI less than 18.5? No Does patient have swallowing, coughing, or chewing problems affecting oral intake? No Has patient experienced unplanned weight loss or gain greater than 10 pounds over the last 2 months? No Is patient's Hgb A1C (Glycosylated Hemoglobin) greater than 9.5? No Is patient receiving Total Parenteral Nutrition (TPN) or Tube Feedings? No Patient Health Education Screen BARRIERS/SPECIAL NEEDS: No barriers identified PREFERRED STYLE OF LEARNING: Watching something Listening Reading Client Assistive Service (SISI) Screen Does the patient require assistance with outpatient visit? No /darrick/ BIANCA LEO LPN LICENSED PRACTICAL NURSE Signed: 10/26/2024 09:14 BIANCA LEO [facility] Oct 26, 2024 09:08 AM PRIMARY CARE NOTE: LOCAL TITLE: [facility] PROGRESS NOTE-[facility] TITLE: PRIMARY CARE NOTE DATE OF NOTE: OCT 26, 2024@09:08 ENTRY DATE: OCT 26, 2024@09:08:25 AUTHOR: DOMENIC GREENBERG COSIGNER: URGENCY: STATUS: COMPLETED Today's Nurse check-in note reviewed. Seen in clinic today respecting current PPE guidelines. HPI: The patient is a 59 year old MALE here for Wellness and preventive medicine visit. The patient has no concerns today. Review of Systems: Denies chest pain, shortness of breath, recent significant weight changes, rash, bowel or bladder changes, new joint pain or swelling, headaches, lightheadedness, vision changes, new numbness or tingling or weakness. Remainder of 10 point ROS is negative, except as above. Past Medical History Active problems - Computerized Problem List is the source for the followin. Degenerative disc disease - L5-S1 level 2. Erectile Dysfunction ([facility] [id number]) 3. Insomnia ([facility] [id number]) 4. Plantar fasciitis 5. Rubella 6. Varicose veins of bilateral lower limbs 7. History of gastric bypass Service: Service Branch Service # Entered Discharge Qulsar [id number] JANUARY 12, 1989 JAN 21, 1993 HONORABLE Family/social and surgical history reviewed Allergies: Patient has answered NKA Physical Exam: Vitals: BP: 108/69 (10/15/2024 09:55) P: 72 (10/15/2024 09:55) R: 14 (10/15/2024 09:55) T: 97.1 F [36.2 C] (10/15/2024 09:55) WT: 256.1 lb [116.17 kg] (10/11/2024 15:28) BMI: 33.0 Pain: 0 (10/15/2024 09:55) O2 Sat: 99% (10/15/2024 09:55) General: Alert, well dressed and groomed, no apparent distress HEENT: ear canals clear, TMs normal, OP clear, neck supple without mass, adenopathy or thyromegaly Lungs: Clear; no wheezes or crackles CV: RRR without murmur, no lower extremity edema GI: Abdomen non distended, soft, non tender, normal bowel sounds, no mass or HSM Skin: Warm and moist, no rash or erythema in exposed areas MS: Ortho boot L foot, ambulates without difficulty Psych: Good eye contact, speech normal rate and rhythm, affect full range Assessment/Plan: #Wellness/screening visit completed. I will follow up with the on labs. If all is well we can see back in a year pending results of above. If all is well we can see this comanaged back in a year. understands and agrees to the plan. Follow up as discussed. Sooner if questions or concerns. 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 Printed information was offered and provided if desired. /caregiver has no health or medical concerns related to their concern of environmental exposure. No questions at this time Ozan/caregiver was informed of local points of contact. Contact information for local resources: - Veterans Benefits for claims submission: Have the call or have them visit the following web address for online scheduling: [email or web address] - [place] Healthcare Enrollment: [phone] ([phone]) - Find a Ozan Director Translational (VSO): Have the call [phone] or look up their VSO at: [email or web address] - [facility] Navigators: Yvonne Reed [facility] [phone] The following connections were provided to the /caregiver: No connections needed at this time // DOMENIC GREENBERG DNP, CONVEYOR MAINTENANCE MECHANIC, [facility] NURSE PRACTITIONER Signed: 10/26/2024 09:36 DOMENIC GREENBERG [facility]
--- OUTSIDE RECORDS SUMMARY | 2024-12-20 13:28 | XMS_ITS | Encounter Summary ---
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 ([place]) Organization [facility] Address [address] [place] [address] Care Team Providers Care Production Dispatcher Name Role Phone DOMENIC GREENBERG Primary Care [...] [facility] Aug 22, 2020 [id number] AS1 [id number] [phone] HARPREET LOPEZ PATIENT [place]BS [place] H[place] DEDUCTIBL E HEALTH PLAN W/HEALTH SAVINGS ACCOUNT [facility] Aug 22, 2020 [id number] AS1 [id number] HARPREET LOPEZ PATIENT CAREMARK ([id number]) PRESCRIPT SHARATH Gomes [facility] Aug 22, 2020 [id number] [phone] HARPREET LOPEZ PATIENT CAREMARK ([id number]) PRESCRIPT SHARATH YEUNG M RX [facility] Aug 22, 2020 [id number] [phone] HARPREET LOPEZ PATIENT Selected Encounter This section includes the information on record at [place] for the Encounter. Date/Time Encounter Type Encounter Description Reason Provider Source Nov 21, 2024 01:30 PM OFFICE O/P EST MOD 30 MIN PODIATRY ICD-10-CM L02.612 Cutaneous abscess of left foot BURGESS,THIEN LUCIAN IHE Encounter Template Text not used by [facility] Assessments - Encounter Diagnoses This section includes the primary and secondary diagnoses documented for the Encounter. Date/Time Primary/Secondary Diagnosis Diagnosis Name Provider Source Nov 21, 2024 01:50 PM PRIMARY Cutaneous abscess of left foot THIEN BURGESS [facility] Plan of Treatment: Future Appointments (+ 6 months) and Future Tests (+/- 45 days) The Plan of Treatment section includes future care activities for the patient from all [place] treatmentfacilities. This section includes future appointments and future orders which are active, pending or scheduled. Future Appointments This section includes appointments that were scheduled to occur 6 months from the date of the Encounter, up to a maximum of 20 appointments. The data comes from all [place] treatment facilities. Appointment Date/Time Appointment Type Appointme nt Facility Name Feb 21, 2025 01:30 PM AMBULATORY - SURGERY [facility] Radiology Reports: +/- 30 days of the [...] the Encounter. The data comes from all [place] treatment facilities. Date/Time Radiology Report Provider Source Oct 30, 2024 08:34 AM LDCT LUNG CANCER S CREENING: BRETT LOPEZYL RAYMOND [id number] -[id number] M Exm Date: OCT 30, 2024@08:34 Req Phys: DOMENIC GREENBERG Pat Loc: [facility] PULM CHART CHECK [facility] (Req' Img Loc: CT IMAGING Service: [place] [address] (Case [id number] COMPLETE) LDCT LUNG CANCER SCREENING (CT Detailed) CPT:96842 Reason for Study: LDCT f/u LUNGRADS 2b [...] 30, 2024 Date Verified: OCT 30, 2024 Rehab Rn E-Sig:/ES/ROGER CHAUHAN MD Report: EXAM: LDCT LUNG [...] Primary Interpreting Staff: ROGER CHAUHAN MD, RADIOLOGIST (Rehab Rn) /FORMERLY [facility] ROGER CHAUHAN [facility] Encounter Notes: All associated encounter notes This section contains the clinical notes associated to the Encounter. Date/Time Encounter Note(s) Provider Source Nov 21, 2024 01:46 PM PODIATRY ATTENDING NOTE: LOCAL TITLE: PODIATRY CLINIC NOTE STANDARD TITLE: PODIATRY ATTENDING NOTE DATE OF NOTE: NOV 21, 2024@13:46 ENTRY DATE: NOV 21, 2024@13:46:42 AUTHOR: THIEN BURGESS COSIGNER: URGENCY: STATUS: COMPLETED Reason for Visit: This 59 year old MALE presents to podiatry for follow-up s/p I and D 1st MPJ left foot. Pt is doing well and feels the wound is closed. He has no pain and feels that the pain is better than it has been in a long time. Past Medical History: Degenerative disc disease ([facility] [id number])Erectile Dysfunction ([facility] [id number]) Insomnia ([facility] [id number]) Plantar fasciitis ([facility] [id number]) Rubella ([facility] [id number]) Varicose veins of bilateral lower limbs ([facility] [id number]) History of gastric bypass ([facility] [id number] to potentially hazardous substance ([facility] [id number]) Current Medications: Active Outpatient Medications (including Supplies): APPLICATOR,COTTON TIP STERILE 1 APPLICATOR TOPICALLY ACTIVE DIRECTED TO PACK WITH IODOFORM Indication: WOUND BANDAGE,STRETCH,ROSIDAL K 1OCM X 5M USE 1 BANDAGE ACTIVE TOPICALLY DIRECTED CADEXOMER IODINE 0.9% TOP GEL APPLY THIN LAYER TOPICALLY ACTIVE DIRECTED FOR Indication: FOOT WOUND DRESS,MEPILEX BORDER FLEX 4X4IN #[id number] APPLY 1 DRESSING ACTIVE TOPICALLY DIRECTED FOOT WOUND Indication: FOOT WOUND FERROUS SULFATE 325MG TAB TAKE ONE TABLET BY MOUTH EVERY ACTIVE DAY Indication: FOR ANEMIA GAUZE,PACKING PLAIN 1/2IN X 5YD USE GAUZE DIRECTED ACTIVE POST OP Indication: POST OP GLOVE LATEX LARGE PWDR-FREE NONSTERILE USE GLOVE(S) ACTIVE DIRECTED POST OP Indication: POST OP NICOTINE 14MG/24HR PATCH APPLY 1 PATCH TOPICALLY EVERY DAY HOLD Indication: TO QUIT TOBACCO NICOTINE 7MG/24HR PATCH APPLY 1 PATCH TOPICALLY EVERY DAY HOLD Indication: TO QUIT TOBACCO TADALAFIL 20MG TAB TAKE ONE TABLET BY MOUTH ONCE NEEDED ACTIVE (S) Indication: FOR ERECTILE DYSFUNCTION ZOLPIDEM TARTRATE 12.5MG SA TAB TAKE ONE TABLET BY MOUTH ACTIVE AT BEDTIME Indication: FOR SLEEP Non-VA CALCIUM CARBONATE TAB 500MG MOUTH EVERY DAY ACTIVE Non-VA CHOLECALCIF 25MCG (D3-1,000UNIT) TAB 50MCG MOUTH ACTIVE EVERY DAY Non-VA MAGNESIUM TAB 250 MG EVERY DAY ACTIVE Non-VA MULTIVITAMIN CAP/TAB 2 TABLETS MOUTH EVERY DAY ACTIVE Non-VA TADALAFIL 10MG TAB 10MG MOUTH EVERY DAY NEEDED ACTIVE Non-VA ZOLPIDEM TARTRATE 12.5MG SA TAB 12.5MG MOUTH AT ACTIVE BEDTIME 17 Total Medications Patient states he is taking all the above medications except Herbals/Over the Counter Medications: Review of Systems:No fever, chills, nausea, vomiting, shortness of breath, chest pain, calf pain noted. Physical Exam: Constitution: Well-developed and well-nourished. Gait appears antalgic. No apparent distress. Alert and oriented to person, place, and time. Integument: There are no varicosities. Skin appears moist, warm, and supple with positive hair growth. There are no color changes. No open lesions. No macerations. Incision is now closed with stable eschar overlying the wound. Vascular examination: Dorsalis pedis and posterior tibial [...] junction. Not painful to patient. Assessment: s/p 5 weeks I and D left foot Plan Pt. may RTC 3 mo if needed for recheck. Otherwise Pt. is released to full duty. Advised no barefoot walking in the house. Pt. agrees. /darrick/ THIEN Burgess DPM STAFF TRAIN CALLER Signed: 11/21/2024 13:50 THIEN BURGESS [facility]
--- OUTSIDE RECORDS SUMMARY | 2024-12-20 13:28 | XMS_ITS | Encounter Summary ---
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 [place] [facility] Address [address] [place] [address] Care Team Providers Care Paper Cone Machine Operator Name Role Phone DOMENIC GREENBERG Primary Care [...] DEDUCTIBL E HEALTH PLAN W/HEALTH SAVINGS ACCOUNT [facility] Aug 22, 2020 [id number] AS1 [id number] [phone] HARPREET LOPEZ PATIENT BCBS [place] HIGH DEDUCTIBL E HEALTH PLAN W/HEALTH SAVINGS [facility]OUNT [facility] Aug 22, 2020 [id number] AS1 [id number] [phone] HARPREET LOPEZ PATIENT CAREMARK ([id number]) PRESCRIPT SHARATH YEUNG M RX [facility] Aug 22, 2020 [id number] [phone] HARPREET LOPEZ PATIENT CAREMARK ([id number]) PRESCRIPT SHARATH YEUNG M RX [facility] Aug 22, 2020 [id number] [phone] HARPREET LOPEZ PATIENT Selected Encounter This section includes the information on record at [place] for the Encounter. Date/Time Encounter Type Encounter Description Reason Pro vider Source Jul 21, 2024 03:53 PM Outpatient Encounter CLINICAL PHARMACY E Encounter Template Text not used by [place] Plan of Treatment: Future Appointments (+ 6 months) and Future Tests (+/- 45 days) The Plan of Treatment section includes future care activities for the patient from all [facility]. This section includes future appointments and future orders which are active, pending or scheduled. Future Appointments This section includes appointments that were scheduled to occur 6 months from the date of the Encounter, up to a maximum of 20 appointments. The data comes from all [facility]. Appointment Date/Time Appointment Type Appointme nt Facility Name Jul 25, 2024 09:00 AM AMBULATORY - MEDICINE [facility] Jul 25, 2024 09:30 AM AMBULATORY - SURGERY [facility] Aug 17, 2024 10:00 AM AMBULATORY - NONE [facility] Sep 24, 2024 02:30 PM AMBULATORY - SURGERY [facility] Oct 07, 2024 02:26 AM AMBULATORY - MEDICINE [facility] Oct 11, 2024 03:00 PM AMBULATORY - MEDICINE [facility] Oct 11, 2024 03:15 PM AMBULATORY - SURGERY [facility] Oct 11, 2024 04:00 PM AMBULATORY - NONE [facility] Oct 15, 2024 07:15 AM AMBULATORY - SURGERY [facility] Oct 18, 2024 12:08 PM AMBULATORY - NONE [facility] Oct 23, 2024 03:00 PM AMBULATORY - SURGERY [facility] Oct 26, 2024 09:00 AM AMBULATORY - MEDICINE [facility] Oct 30, 2024 08:30 AM AMBULATORY - NONE [facility] Nov 07, 2024 09:00 AM AMBULATORY - SURGERY [facility] Nov 21, 2024 01:30 PM AMBULATORY - SURGERY [facility] Active, Pending, and Scheduled Orders This section includes a listing of several types of active, pending, and scheduled orders, including clinic medications orders, diagnostic test orders, procedure orders and consult orders; where the start date of the order is 45 days before the date of the Encounter or 45 days after the date of theEncounter. The data comes from all [facility]. Test Date/Time Test Type Test Details Facility Name Jun 28, 2024 12:00 AM Laboratory - Chemi stry Order PSA SERUM SP ONCE [facility] Lab Results: +/- 30 days of the encounter This section includes the Chemistry and Hematology Lab Results on record with [place] for the patient. Radiology Reports and Pathology Reports are provided separately, in subsequent sections. Lab Results This section contains the Chemistry/Hematology Results that were resulted 30 days before or 30 daysafter the date of the Encounter. Date/Time Source Result Type Result - Unit Interpretation Reference Range Specimen Type Comment Jul 21, 2024 02:17 PM [facility] EXTRA MINT TUBE PLASMA Specimen Type: PLASMA No comment entered. Ordering Provider: XENA DAILY Report Released Date/Time: Jul 21, 2024 02:22 PM Reporting Lab: [facility] [address] Performing Lab: [facility] [address] EXTRA MINT TUBE RECEIVED Jul 21, 2024 02:17 PM [facility] SED RATE BLOOD Specimen Type : BLOOD No comment entered. Ordering Provider: XENA DAILY Report Released Date/Time: Jul 21, 2024 02:04 PM Reporting Lab: [facility] [address] Performing Lab: [facility] [address] SED RATE 10 mm/h 5-15 Jul 21, 2024 02:17 PM [facility] C-REACTIVE PROTEIN SERUM Specimen Type: SERUM No comment entered. Ordering Provider: XENA DAILY Report Released Date/Time: Jul 21, 2024 02:04 PM Reporting Lab: [facility] [address] Performing Lab: [facility] [address] C-REACTIVE PROTEIN 8.04 mg/L H <5.00 Jul 21, 2024 02:17 PM [facility] EXTRA BLUE TUBE PLASMA Specimen Typ e: PLASMA No comment entered. Ordering Provider: XENA DAILY Report Released Date/Time: Jul 21, 2024 02:22 PM Reporting Lab: [facility] [address] Performing Lab: [facility] [address] EXTRA BLUE TUBE RECEIVED Jul 21, 2024 02:17 PM [facility] CBC & DIFF BLOOD Specimen Type : BLOOD Comment: Automated Differential Performed Ordering Provider: XENA DAILY Report Released Date/Time: Jul 21, 2024 02:04 PM Reporting Lab: [facility] [address] Performing Lab: [facility] [address] WBC 8.2 4.0-11.0 RBC 4.71 4.60-6.20 HGB 14.3 g/dL 13.5-17.9 HCT 42.6 41.0-54.0 MCV 90.4 fL 80.0-100.0 MCH 30.4 pg 27.0-33.0 MCHC 33.6 g/dL 32.0-37.5 PLT 201 150-400 MPV 9.3 fL 9.1-13.0 NEUT 67.5 40.0-80.0 LYMPHS 23.9 15.0-45.0 MONO 5.5 2.0-12.0 EOSINO 2.5 0.0-6.0 BASO 0.4 0.0-2.0 RDW 13.6 11.5-14.5 ABS LYMPH 2.0 1.0-4.0 ABS MONO 0.5 0.1-1.0 ABS NEUT 5.5 2.0-7.7 ABS EOS 0.2 0.0-0.5 ABS BASO 0.0 0.0-0.2 IG(META,MYELO,PRO) 0.2 ABS IMMATURE GRAN 0.0 0.0-0.1 Jul 10, 2024 07:30 PM [facility] EXTRA BLUE TUBE PLASMA Specimen Typ e: PLASMA No comment entered. Ordering Provider: CARLO MUÑOZ Report Released Date/Time: Jul 10, 2024 07:39 PM Reporting Lab: [facility] [address] Performing Lab: [facility] [address] EXTRA BLUE TUBE RECEIVED Jul 10, 2024 07:30 PM [facility] URIC ACID PLASMA Specimen Type: PLASMA No comment entered. Ordering Provider: CARLO MUÑOZ Report Released Date/Time: Jul 10, 2024 07:15 PM Reporting Lab: [facility] [address] Performing Lab: [facility] [address] URIC ACID 6.4 mg/dL 3.7-7.7 Jul 10, 2024 07:30 PM [facility] BASIC METABOLIC PANEL+MG PLASMA Spe cimen Type: PLASMA No comment entered. Ordering Provider: CARLO MUÑOZ Report Released Date/Time: Jul 10, 2024 07:15 PM Reporting Lab: [facility] [address] Performing Lab: [facility] [address] CREATININE 0.9 mg/dL 0.7-1.2 UREA NITROGEN 18 mg/dL 8-26 GLUCOSE 96 mg/dL 70-100 SODIUM 141 mmol/L 136-145 POTASSIUM 4.0 mmol/L 3.5-5.1 CHLORIDE 112 mmol/L H 98-107 CO2 21 mmol/L L 22-29 CALCIUM 9.2 mg/dL 8.4-10.2 MAGNESIUM 2.2 mg/dL 1.6-2.6 ANION GAP 8 mmol/L 5-15 .CREAT EGFR(CKD-EPI) >90 >60 Jul 10, 2024 07:30 PM [facility] EXTRA GOLD GEL TUBE SERUM Specimen Type: SERUM No comment entered. Ordering Provider: CARLO MUÑOZ Report Released Date/Time: Jul 10, 2024 07:39 PM Reporting Lab: [facility] [address] Performing Lab: [facility] [address] EXTRA GOLD GEL TUBE RECEIVED Jul 10, 2024 07:30 PM [facility] URINALYSIS URINE Specimen Type: URINE No comment entered. Ordering Provider: CARLO MUÑOZ Report Released Date/Time: Jul 10, 2024 07:15 PM Reporting Lab: [facility] [address] Performing Lab: [facility] [address] URINE COLOR LIGHT-YELLOW SPECIFIC GRAVITY 1.019 1.003-1.035 URINE BILIRUBIN NEGATIVE NEGATIVE URINE KETONES NEGATIVE NEGATIVE URINE GLUCOSE NEGATIVE mg/dL <30 URINE PROTEIN NEGATIVE mg/dL <20 URINE PH 6.0 5.0-8.0 URINE WBC/HPF NONE SEEN /[HPF] 0-7 URINE BACTERIA NONE SEEN URINE RBC/HPF 1 /[HPF] 0-3 APPEARANCE CLEAR SQUAMOUS EPITHELIAL NONE SEEN /[HPF] URINE BLOOD NEGATIVE NEGATIVE URINE NITRITE NEGATIVE NEGATIVE LEUKOCYTE ESTERASE NEGATIVE NEGATIVE Jul 10, 2024 07:30 PM [facility] CBC & DIFF BLOOD Specimen Type: BLOOD Comment: Automated Differential Performed Ordering Provider: CARLO MUÑOZ Report Released Date/Time: Jul 10, 2024 07:15 PM Reporting Lab: [facility] [address] Performing Lab: [facility] [address] WBC 7.2 4.0-11.0 RBC 4.63 4.60-6.20 HGB 13.8 g/dL 13.5-17.9 HCT 41.4 41.0-54.0 MCV 89.4 fL 80.0-100.0 MCH 29.8 pg 27.0-33.0 MCHC 33.3 g/dL 32.0-37.5 PLT 184 150-400 MPV 9.7 fL 9.1-13.0 NEUT 67.0 40.0-80.0 LYMPHS 22.0 15.0-45.0 MONO 6.1 2.0-12.0 EOSINO 3.9 0.0-6.0 BASO 0.7 0.0-2.0 RDW 14.0 11.5-14.5 ABS LYMPH 1.6 1.0-4.0 ABS MONO 0.4 0.1-1.0 ABS NEUT 4.8 2.0-7.7 ABS EOS 0.3 0.0-0.5 ABS BASO 0.1 0.0-0.2 IG(META,MYELO,PRO) 0.3 ABS IMMATURE GRAN 0.0 0.0-0.1 Vital Signs: All taken on the encounter date This section contains inpatient and outpatient Vital Signs collected on the date of the Encounter. Date/Time Temperature Pulse Blood Pressure Respiratory Rate SP02 Pain Height Weight Body Mass Index Source Jul 21, 2024 01:18 PM 98.2 88 148/101 16 [facility] Radiology Reports: +/- 30 days of the [...] the Encounter. The data comes from all [place] treatment facilities. Date/Time Radiology Report Provider Source Aug 17, 2024 10:05 AM MRI FOOT LEFT (P): JOHN LOPEZ [id number] -1965 M Exm Date: AUG 17, 2024@10:05 Req Phys: MILLIE PAIGE Pat Loc: [facility] POD ROYAL CONSULT (Req'g L Img Loc: MRI IMAGING Service: [place] [address] (Case [id number] COMPLETE) MRI FOOT LEFT W/O & W/CONTRAST (MRI Detailed) CPT:68150 Contrast Media : unspecified contrast media Reason for Study: left foot 1st MPJ Clinical History: Per Joint Commission Standards, by signing this diagnostic imaging request the ordering provider confirms they have considered patients age and recent imaging history. Left 1st MPJ previous cyst removal, new pain. Eval for deep space abscess, osteomyelitis, new cyst. Thanks! Responsible provider name and phone number to notify for critical findings if other than user placing the order and pager listed below: User placing orders pager: [phone] LAST CREATININE 0.9 (07/10/24) Allergies: Patient has answered NKA Report Status: Verified Date Reported: AUG 17, 2024 Date Verified: AUG 17, 2024 Research Development Director E-Sig:/ES/ARMIN FENTON MD Report: MRI LEFT FOOT WITHOUT AND WITH CONTRAST 08/17/2024 INDICATION: 59-year-old male. Previous cyst removal. New pain. Evaluate for deep space abscess, osteomyelitis, or new cyst. TECHNIQUE: Routine without and with IV contrast. 10 mL of IV Gadavist. Postcontrast axial and coronal imaging. COMPARISON: Plain Films Left Foot 07/21/2024. Outside MRI Left Foot 12/30/2023. Impression: Possible tiny wound along the plantar aspect of the 1st metatarsal head and sesamoid region. No focal drainable fluid collection identified. There is thickening of some of the tissues along the plantar aspect of the lateral sesamoid and extensor hallucis longus tendon but no convincing evidence of recurrent cyst. See coronal STIR images and coronal postcontrast images 16-19. Postoperative changes with mild edema and enhancement along the soft tissues which are plantar to the sesamoids and 1st metatarsal head. See coronal images 14-19 of series 12 and series 8. Also see STIR axial images 17-20 and postcontrast axial images 18-21. No evidence to suggest osteomyelitis. There is slightly increased T2 signal within the bipartite medial sesamoid however this was also present on the prior outside MRI examination dated 12/30/2023. Postoperative changes of the 2nd through 4th toes and 2nd and 5th metatarsals again noted. Small degenerative subchondral cystic change in the 1st metatarsal head again noted. Report Sign Date/Time: 08/17/2024 12:37 PM Primary Interpreting Staff: ARMIN FENTON MD, RADIOLOGIST (Research Development Director) /RTS ARMIN FENTON [facility] Jul 21, 2024 02:21 PM FOOT LEFT 3 VIEWS OR MORE: JOHN LOPEZ [id number] -1965 M Exm Date: JUL 21, 2024@14:21 Req Phys: XENA DAILY Eliseo Pat Loc: [facility] EMERGENCY DEPT WALK-IN (Re Img Loc: MAIN X-RAY Service: [place] [address] (Case [id number] COMPLETE) FOOT LEFT 3 VIEWS OR MORE (RAD Detailed) CPT:09695 Reason for Study: Swelling/redness and draining wound left 1st MTP Clinical History: Swelling/redness to left 1st MTP (worst on plantar aspect), with 1 week of drainage from open wound on plantar aspect of the 1st MTP. Evaluate for possible osteomyelitis Responsible provider name and phone number to notify for critical findings if other than user placing the order and pager listed below: User placing orders pager: LAST CREATININE 0.9 (07/10/24) Report Status: Verified Date Reported: JUL 21, 2024 Date Verified: JUL 21, 2024 Research Development Director E-Sig: Report: RADIOGRAPHS OF THE LEFT FOOT HISTORY: Swelling/redness and draining wound left 1st MTP Comparison: 08/31/2023 Findings: 3 views of the left foot. No acute fracture or dislocation. Bone mineralization is within normal limits. No osseous erosions. Second, third and fourth toe proximal interphalangeal joint arthrodesis with bony ankylosis. Stable appearance of the fifth toe proximal interphalangeal joint which could also reflect prior intervention versus degenerative change. 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 Malleable plate and screw fixation of the fifth metatarsal. The head of a transverse screw at the fifth metatarsal is not closely opposed to the cortex or well seated but similar to prior. Healed osteotomy and screw fixation at the second metatarsal. Soft tissue swelling near to the great toe metatarsal head. Small soft tissue surface ulceration at the plantar soft tissues near to the metatarsal head on the lateral view of the 8 mm. Small retrocalcaneal spur. Moderate plantar calcaneal spur. Mild midfoot degenerative change. Faint soft tissue and/or vascular calcifications. Impression: Soft tissue swelling and ulceration at the plantar aspect of the foot and near to the great toe metatarsal head. No clear osseous erosion seen. Stable postsurgical changes. A fifth metatarsal transverse screw as detailed but unchanged. READING PHYSICIAN: Lake Ferrer M.D. [phone] 07/21/2024 13:28 [facility] National Teleradiology Program [phone] (For Medical Practitioner Use Only) Attention Patients / Veterans: If you have questions or concerns about these test results, please contact your ordering provider or primary care team. Primary Interpreting Staff: RADIOLOGY,OUTSIDE SERVICE, Staff Physician / RADIOLOGY,OUTSIDE SERVICE [facility] Pathology Reports: +/- 30 days of the [...] the Encounter. The data comes from all [place] treatment facilities. Date/Time Pathology Report Provider Source Jul 21, 2024 02:13 PM LR MICROBIOLOGY RE PORT: Reporting Lab: [facility] [CLIA# [id number]] [place] [address] Accession [UID]: [id number] [[id number]] Received: Jul 21, 2024@14:26 Collection sample: WOUND Collection date: Jul 21, 2024 14:13 Provider: XENA DAILY Comment on specimen: LEFT FOOT, SWAB RECEIVED Test(s) ordered: GRAM STAIN.................... completed: Jul 21, 2024 15:00 CULTURE & SUSCEPTIBILITY...... completed: Jul 23, 2024 * BACTERIOLOGY FINAL REPORT => Jul 23, 2024 14:24 TECH CODE: [id number] GRAM STAIN: DIRECT SMEAR of specimen before culturing shows: 1+ PMNS 3+ GRAM POSITIVE COCCI IN PAIRS SUGGESTIVE OF STAPH, STREP, OR ENTEROCOCCUS 2+ SMALL GRAM POSITIVE RODS CULTURE PENDING CULTURE RESULTS: 1. STAPHYLOCOCCUS EPIDERMIDIS - Quantity: 2+ Comment: No susceptibility testing performed. 2. DIPHTHEROIDS - Quantity: 2+ Comment: No susceptibility testing performed. Bacteriology Remark(s): THIS REPORT IS FINAL =--=--=--=--=--=--=--=--=--=--=--=- -=--=--=--=--=--=--=--=--=--=--=--= --=--=-- Performing Laboratory: Bacteriology Report Performed By: [facility] [CLIA# [id number]] [address] [place] [address] [facility] Encounter Notes: All associated encounter notes This section contains the clinical notes associated to the Encounter. Date/Time Encounter Note(s) Provider Source Jul 21, 2024 03:53 PM EDUCATION NOTE: LOCAL TITLE: EDUCATION MEDICATION INSTRUCTION STANDARD TITLE: EDUCATION NOTE DATE OF NOTE: JUL 21, 2024@15:53 ENTRY DATE: JUL 21, 2024@15:53:34 AUTHOR: FLORIDA WALDROP EXP COSIGNER: URGENCY: STATUS: COMPLETED MEDICATION EDUCATION PARTICIPANTS: Patient TEACHING STRATEGY: Face to Face READINESS TO LEARN: No barriers identified LEARNING NEEDS/OBJECTIVES Participant(s) indicates readiness to learn and has been instructed on indications, side effects, and directions for use. Participant(s) will receive medication information sheets for medications filled. Education included discussion of the following: New medication(s): AUGMENTIN PATIENT/FAMILY RESPONSE (OUTCOME): Verbalizes critical information about the topic FOLLOW-UP RECOMMENDED: None needed /darrick/ FLORIDA WALDROP PharmD CLINICAL PHARMACIST Signed: 07/21/2024 15:54 FLORIDA WALDROP [facility]
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
--- OUTSIDE RECORDS SUMMARY | 2024-12-20 13:28 | XMS_ITS | Continuity of Care Document ---
Author Name [facility] Organization [facility] Care Team Providers Care Aged Or Disabled Carer Name Role Phone [facility] Unavailable Unavailable Problems Combined list of problems from Department of Defense and Veterans Affairs facilities. It does not include entries that were removed or entered in error. Problem Status Onset Date Problem Type Date of Resolution Comments Source Degenerative disc disease Active 12/21/19 17 Condition Oct 23, 2021 Entered By: ZULEIMA WYATT Comment: L5-S1 level [facility] Insomnia ([facility] [id number]) Active 12/13/19 14 Condition [facility] Erectile Dysfunction ([facility] [id number]) Active 10/23/19 12 Condition [facility] Plantar fasciitis Active 02/23/20 10 Condition [facility] Rubella Active 05/25/19 71 Condition [facility] Exposure to potentially hazardous substance ([facility] [id number]) Active Condition Oct 30 5 Entered By: VISHAL VIDALES Comment: Entered automatically through [employer] Problem List documentation program [facility] History of gastric bypass Active Condition [facility] Varicose veins of bilateral lower limbs Active Condition [facility] Diagnosis: ICD-10-CM L02.612 Cutaneous abscess of left foot Active Diagnosis [facility] Diagnosis: ICD-10-CM M72.2 Plantar fascial fibromatosis Active Diagnosis [facility] Diagnosis: ICD-10-CM Z00.00 Encntr for general adult medical exam w/o abnormal findings Active Diagnosis [facility] Diagnosis: ICD-10-CM L02.611 Cutaneous abscess of right foot Active Diagnosis [facility] Diagnosis: ICD-10-CM Z01.818 Encounter for other preprocedural examination Active Diagnosis [facility] Diagnosis: ICD-10-CM M51.9 Unsp thoracic, thoracolum and lumbosacr intvrt disc disorder Active Diagnosis [facility] Diagnosis: ICD-10-CM Z13.6 Encounter for screening for cardiovascular disorders Active Diagnosis [facility] Diagnosis: ICD-10-CM L72.0 Epidermal cyst Active Diagnosis [facility] Diagnosis: ICD-10-CM S91.302A Unspecified open wound, left foot, initial encounter Active Diagnosis [facility] Diagnosis: ICD-10-CM M10.9 Gout, unspecified Active Diagnosis [facility] Diagnosis: ICD-10-CM B07.0 Plantar wart Active Diagnosis [facility] Diagnosis: ICD-10-CM Z71.81 Spiritual or sikhism counseling Active Diagnosis [facility] Diagnosis: ICD-10-CM M79.672 Pain in left foot Active Diagnosis [facility] Diagnosis: ICD-10-CM M71.372 Other bursal cyst, left ankle and foot Active Diagnosis [facility] Diagnosis: ICD-10-CM Z00.01 Encounter for general adult medical exam w abnormal findings Active Diagnosis [facility] Diagnosis: ICD-10-CM M77.42 Metatarsalgia, left foot Active Diagnosis [facility] Medications Combined list of outpatient medications from Department of Defense and Veterans Affairs facilities.Medications provided include 1) outpatient medications from the last 15 months, and 2) patient-reported medications. Medication Details Route Status Patient Instructions Prescription Expires Prescription Number Last Dispense Date Ordering Provider Order Date Order Qty Source AMOXICILLIN TRIHYDRATE 875MG/CLAVU LANATE K 125MG TAB TAKE 1 TABLET BY MOUTH TWICE A DAY FOR FOOT INFECTIO N ORAL 08/20/2024 [id number] TABITHA MYAA 2023 56 [facility] CADEXOMER IODINE 0.9% GEL,TOP APPLY THIN LAYER TOPICALL Y DIRECTED FOR FOOT WOUND TOPICA L ACTIVE 11/08/2025 [id number] 5 Bong LOBATO 2024 40 [facility] CALCIUM CARBONATE TAB TAKE 500MG BY MOUTH EVERY DAY ORAL ACTIVE Kody WYATT 2021 [facility] CEFADROXIL 500MG CAP TAKE TWO CAPSULES BY MOUTH TWICE A DAY ORAL 11/06/2024 [id number] 5 NELSON AVILEZ 2024 40 [facility] CHOLECALCIF YOLY 25MCG (1,000UNIT) TAB TAKE TWO TABLETS BY MOUTH EVERY DAY ORAL ACTIVE EDMUNDOE JOSE RAFAEL Kat 2021 [facility] FERROUS SO4 325MG TAB TAKE ONE TABLET BY MOUTH EVERY DAY FOR ANEMIA ORAL ACTIVE 10/27/2025 [id number] Kat GREENBERG 2024 100 [facility] FERROUS SO4 325MG TAB TAKE ONE TABLET BY MOUTH EVERY DAY FOR ANEMIA ORAL DISCONT INUED 07/06/2025 [id number] Kat GREENBERG 2023 100 [facility] HYDROCODONE 5MG/ACETAMI NOPHEN 325MG TAB TAKE 1 TABLET BY MOUTH EVERY 4 HOURS NEEDED FOR PAIN ORAL 11/14/2024 [id number] 5 Bong LOBATO 2024 12 [facility] HYDROCODONE 5MG/ACETAMI NOPHEN 325MG TAB TAKE 1 TABLET BY MOUTH EVERY 4 HOURS NEEDED FOR PAIN ORAL 04/18/2024 [id number] 4 Bong LOBATO 2023 12 [facility] MAGNESIUM TAB TAKE 250 MG EVERY DAY ACTIVE [facility] Kat 2021 [facility] MULTIVITAMI NS CAP/TAB TAKE TWO TABLETS BY MOUTH EVERY DAY ORAL ACTIVE [place] Kat 2021 [facility] NICOTINE 14MG/24HRS PATCH APPLY 1 PATCH TOPICALL Y EVERY DAY TO QUIT TOBACCO TOPICA L 11/21/2024 [id number] Kat GREENBERG 2023 28 [facility] NICOTINE 21MG/24HRS PATCH APPLY 1 PATCH TOPICALL Y EVERY DAY TO QUIT TOBACCO TOPICA L 10/21/2024 [id number] Kat GREENBERG 2023 28 [facility] NICOTINE 7MG/24HRS PATCH APPLY 1 PATCH TOPICALL Y EVERY DAY TO QUIT TOBACCO TOPICA L 12/19/2024 [id number] Kat GREENBERG 2023 28 [facility] OXYCODONE HCL 5MG TAB TAKE ONE TABLET BY MOUTH EVERY 6 HOURS NEEDED FOR PAIN ORAL 11/06/2024 [id number] NELSON AVILEZ A 2024 12 [facility] PREDNISONE 20MG TAB TAKE TWO TABLETS BY MOUTH EVERY DAY NEEDED FOR GOUT TAKE WITH FOOD STOP TAKING ONCE GOUT SYMPTOMS SUBSIDE. ORAL 08/09/2024 [id number] 4 MUNIRSERGEY,LINDA SHELLY R 2023 14 [facility] SULFAMETHOX AZOLE 800MG/TRIME THOPRIM 160MG TAB TAKE 1 TABLET BY MOUTH TWICE A DAY FOOT INFECTIO N ORAL DISCONT INUED 11/03/2024 [id number] 5 FAREED PAIGE 2024 14 [facility] SULFAMETHOX AZOLE 800MG/TRIME THOPRIM 160MG TAB TAKE 1 TABLET BY MOUTH TWICE A DAY AFTER FINISHIN G FIRST 7 DAYS WORTH ORAL 11/06/2024 [id number] 5 NELSON AVILEZ A 2024 6 [facility] TADALAFIL 10MG TAB TAKE ONE TABLET BY MOUTH EVERY DAY NEEDED ORAL ACTIVE Kody WYATT 2021 [facility] TADALAFIL 20MG TAB TAKE ONE TABLET BY MOUTH ONCE NEEDED FOR ERECTILE DYSFUNCT ION ORAL ACTIVE 10/27/2025 [id number] 5 Kat GREENBERG 2024 18 [facility] TADALAFIL 20MG TAB TAKE ONE TABLET BY MOUTH ONCE NEEDED FOR ERECTILE DYSFUNCT ION ORAL DISCONT INUED 06/29/2025 [id number] 5 Kat GREENBERG 2023 18 [facility] TAMSULOSIN HCL 0.4MG CAP TAKE ONE CAPSULE BY MOUTH EVERY DAY FOR BLADDER SYMPTOMS ORAL 08/09/2024 [id number] 4 TONI,LINDA SHELLY R 2023 30 [facility] ZOLPIDEM TARTRATE 12.5MG TAB,SA TAKE ONE TABLET BY MOUTH AT BEDTIME FOR SLEEP ORAL ACTIVE 04/28/2025 [id number] 5 Kat GREENBERG JOSE RAUL M 2024 30 [facility] ZOLPIDEM TARTRATE 12.5MG TAB,SA TAKE ONE TABLET BY MOUTH AT BEDTIME FOR SLEEP ORAL DISCONT INUED 12/29/2024 [id number] Kat GREENBERG JOSE RAUL Eliseo 2023 30 [facility] ZOLPIDEM TARTRATE 12.5MG TAB,SA TAKE ONE TABLET BY MOUTH AT BEDTIME ORAL ACTIVE Kody WYATT 2021 [facility] Immunizations Combined list of available immunizations from the Department of Defense and Veterans Affairs facilities. Immunization Series Date Given Administered By Site Reaction Lot Number CVX Code Drug Byproducts Maker Status Comments Source INFLUENZA, INJECTABLE, MDCK, QUADRIVALENT, PRESERVATIVE 2022 186 complet ed HISTORICA L INFORMATI ON - FROM OTHER REGISTRY, [facility] INFLUENZA, INJECTABLE, MDCK, QUADRIVALENT, PRESERVATIVE 2021 186 complet ed HISTORICA L INFORMATI ON - FROM OTHER REGISTRY, [facility] INFLUENZA, UNSPECIFIED FORMULATION 2021 88 complet ed HISTORICA L INFORMATI ON - FROM PUBLIC AGENCY, [facility] COVID-19 (MODERNA), MRNA, LNP-S, PF, 100 MCG OR 50 MCG DOSE 3 2020 207 complet ed [facility] INFLUENZA, INJECTABLE, MDCK, QUADRIVALENT, PRESERVATIVE 2020 186 complet ed HISTORICA L INFORMATI ON - FROM OTHER REGISTRY, [facility] INFLUENZA, UNSPECIFIED FORMULATION 2020 88 complet ed [facility] COVID-19 (MODERNA), MRNA, LNP-S, PF, 100 MCG/0.5ML DOSE OR 50 MCG/0.25ML DOSE 2020 207 complet ed HISTORICA L INFORMATI ON - FROM OTHER REGISTRY, [facility] COVID-19 (MODERNA), MRNA, LNP-S, PF, 100 MCG OR 50 MCG DOSE 2 2020 207 complet ed [facility] COVID-19 (MODERNA), MRNA, LNP-S, PF, 100 MCG/0.5ML DOSE OR 50 MCG/0.25ML DOSE 2020 207 complet ed HISTORICA L INFORMATI ON - FROM OTHER REGISTRY, [facility] COVID-19 (MODERNA), MRNA, LNP-S, PF, 100 MCG OR 50 MCG DOSE 1 2020 207 complet ed [facility] INFLUENZA, INJECTABLE, QUADRIVALENT 2019 158 complet ed HISTORICA L INFORMATI ON - FROM OTHER REGISTRY, [facility] INFLUENZA, UNSPECIFIED FORMULATION 2019 88 complet ed [facility] INFLUENZA, INJECTABLE, QUADRIVALENT 2018 158 complet ed HISTORICA L INFORMATI ON - FROM OTHER REGISTRY, [facility] INFLUENZA, INJECTABLE, QUADRIVALENT 2016 158 complet ed HISTORICA L INFORMATI ON - FROM OTHER REGISTRY, [facility] INFLUENZA, INJECTABLE, QUADRIVALENT 2015 158 complet ed HISTORICA L INFORMATI ON - FROM OTHER REGISTRY, [facility] INFLUENZA, INJECTABLE, QUADRIVALENT, PRESERVATIVE FREE 2013 150 complet ed HISTORICA L INFORMATI ON - FROM OTHER REGISTRY, [facility] INFLUENZA, SEASONAL, INJECTABLE, PRESERVATIVE FREE 2012 140 complet ed HISTORICA L INFORMATI ON - FROM OTHER REGISTRY, [facility] INFLUENZA, UNSPECIFIED FORMULATION 2011 88 complet ed HISTORICA L INFORMATI ON - FROM OTHER REGISTRY, [facility] TDAP 2011 115 complet ed [facility] INFLUENZA, SEASONAL, INJECTABLE 2010 141 complet ed HISTORICA L INFORMATI ON - FROM OTHER REGISTRY, [facility] INFLUENZA, UNSPECIFIED FORMULATION 2009 88 complet ed HISTORICA L INFORMATI ON - FROM OTHER REGISTRY, [facility] NOVEL INFLUENZA-H1N 1-09, ALL FORMULATIONS 2009 128 complet ed HISTORICA L INFORMATI ON - FROM OTHER REGISTRY, [facility] NOVEL INFLUENZA-H1N 1-09, ALL FORMULATIONS 2008 128 complet ed HISTORICA L INFORMATI ON - FROM OTHER REGISTRY, [facility] INFLUENZA, SEASONAL, INJECTABLE 2008 141 complet ed HISTORICA L INFORMATI ON - FROM OTHER REGISTRY, [facility] TD (ADULT), 2 LF TETANUS TOXOID, PRESERVATIVE FREE, ADSORBED 1981 09 complet ed HISTORICA L INFORMATI ON - FROM OTHER REGISTRY, [facility] Results Combined list of recent chemistry, hematology and other laboratory results from Department of Defense and Veterans Affairs, ranging from 15 months to all on record, depending upon the facility. Order Name Results Value Reference Range Date Interpretation Specimen Comments Source ALBUMIN ALBUMIN [MASS/VOLU ME] IN SERUM OR PLASMA 3.9 g/dL 3.5 - 5.0 10/11 Specimen Type: PLASMA No comment entered. Ordering Provider: MARLON PAIGE Report Released Date/Time: Oct 09, 2024 09:31 AM Reporting Lab: [facility] [address] Performing Lab: [facility] [address] [place] [facility] HEMOGLOB IN A1C HEMOGLOBIN A1C/HEMOGL OBIN.TOTAL IN BLOOD 5.4 4.0 - 6.0 10/11 Specimen Type: BLOOD Comment: Values obtained from A1C measurement s can vary. For typical A1C assays, a reported value of 7.0 could actually be between 6.7 and 7.3 if measured by a reference method. A reported value of 9.0 could actually be between 8.7 and 9.3. Ref: [email or web address]://[email or web address] ngsp.org/[place] Pdata.asp Ordering Provider: MARLON PAIGE Report Released Date/Time: Oct 09, 2024 09:31 AM Reporting Lab: [facility] [address] Performing Lab: [facility] [address] [place] [facility] BASIC METABOLI C PANEL+MG CREATININE [MASS/VOLU ME] IN SERUM OR PLASMA 1.2 mg/dL 0.7 - 1.2 10/11 Specimen Type: PLASMA No comment entered. Ordering Provider: MARLON PAIGE Report Released Date/Time: Oct 09, 2024 09:31 AM Reporting Lab: [facility] [address] Performing Lab: [facility] [address] [place] [facility] BASIC METABOLI C PANEL+MG UREA NITROGEN [MASS/VOLU ME] IN SERUM OR PLASMA 19 mg/dL 8 - 26 02/20 /2025 Specimen Type: PLASMA No comment entered. Ordering Provider: MARLON PAIGE Report Released Date/Time: Oct 09, 2024 09:31 AM Reporting Lab: [facility] [address] Performing Lab: [facility] [address] [place] [facility] BASIC METABOLI C PANEL+MG GLUCOSE [MASS/VOLU ME] IN SERUM OR PLASMA 98 mg/dL 70 - 100 10/11 Specimen Type: PLASMA No comment entered. Ordering Provider: MARLON PAIGE Report Released Date/Time: Oct 09, 2024 09:31 AM Reporting Lab: [facility] [address] Performing Lab: [facility] [address] [place] [facility] BASIC METABOLI C PANEL+MG SODIUM [MOLES/VOL UME] IN SERUM OR PLASMA 140 mmol/L 136 - 145 10/11 Specimen Type: PLASMA No comment entered. Ordering Provider: MARLON PAIGE Report Released Date/Time: Oct 09, 2024 09:31 AM Reporting Lab: [facility] [address] Performing Lab: [facility] [address] [place] [facility] BASIC METABOLI C PANEL+MG POTASSIUM [MOLES/VOL UME] IN SERUM OR PLASMA 4.2 mmol/L 3.5 - 5.1 10/11 Specimen Type: PLASMA No comment entered. Ordering Provider: MARLON PAIGE Report Released Date/Time: Oct 09, 2024 09:31 AM Reporting Lab: [facility] [address] Performing Lab: [facility] [address] [place] [facility] METABOLI C PANEL+MG CHLORIDE [MOLES/VOL UME] IN SERUM OR PLASMA 113 mmol/L 98 - 107 10/11 H Specimen Type: PLASMA No comment entered. Ordering Provider: MARLON PAIGE Report Released Date/Time: Oct 09, 2024 09:31 AM Reporting Lab: [facility] [address] Performing Lab: [facility] [address] [place] [facility]ABOLI C PANEL+MG CARBON DIOXIDE, TOTAL [MOLES/VOL UME] IN SERUM OR PLASMA 21 mmol/L 22 - 29 10/11 L Specimen Type: PLASMA No comment entered. Ordering Provider: MARLON PAIGE Report Released Date/Time: Oct 09, 2024 09:31 AM Reporting Lab: [facility] [address] Performing Lab: [facility] [address] [place] [facility] C PANEL+MG CALCIUM [MASS/VOLU ME] IN SERUM OR PLASMA 9.0 mg/dL 8.4 - 10.2 10/11 Specimen Type: PLASMA No comment entered. Ordering Provider: MARLON PAIGE Report Released Date/Time: Oct 09, 2024 09:31 AM Reporting Lab: [facility] [address] Performing Lab: [facility] [address] [place] [facility] METABOLI C PANEL+MG MAGNESIUM [MASS/VOLU ME] IN SERUM OR PLASMA 1.8 mg/dL 1.6 - 2.6 10/11 Specimen Type: PLASMA No comment entered. Ordering Provider: MARLON PAIGE Report Released Date/Time: Oct 09, 2024 09:31 AM Reporting Lab: [facility] [address] Performing Lab: [facility] [address] [place] [facility] METABOLI C PANEL+MG ANION GAP IN SERUM OR PLASMA 6 mmol/L 5 - 15 10/11 Specimen Type: PLASMA No comment entered. Ordering Provider: MARLON PAIGE Report Released Date/Time: Oct 09, 2024 09:31 AM Reporting Lab: [facility] [address] Performing Lab: [facility] [address] [place] [facility] C PANEL+MG GLOMERULAR FILTRATION RATE/1.73 SQ M.PREDICTE D [VOLUME RATE/AREA] IN SERUM, PLASMA OR BLOOD BY CREATININE -BASED FORMULA (CKD-EPI 2020) 71 60 10/11 Specimen Type: PLASMA No comment entered. Ordering Provider: MARLON PAIGE Report Released Date/Time: Oct 09, 2024 09:31 AM Reporting Lab: [facility] [address] Performing Lab: [facility] [address] [place] [facility] CBC & DIFF LEUKOCYTES [#/VOLUME] IN BLOOD BY AUTOMATED COUNT 6.3 4.0 - 11.0 10/11 Specimen Type: BLOOD Comment: Automated Differentia l Performed Ordering Provider: MARLON PAIGE Report Released Date/Time: Oct 09, 2024 09:31 AM Reporting Lab: [facility] [address] Performing Lab: [facility] [address] [place] [facility] CBC & DIFF ERYTHROCYT ES [#/VOLUME] IN BLOOD BY AUTOMATED COUNT 5.00 4.60 - 6.20 10/11 Specimen Type: BLOOD Comment: Automated Differentia l Performed Ordering Provider: MARLON PAIGE Report Released Date/Time: Oct 09, 2024 09:31 AM Reporting Lab: [facility] [address] Performing Lab: [facility] [address] [place] [facility] CBC & DIFF HEMOGLOBIN [MASS/VOLU ME] IN BLOOD 14.8 g/dL 13.5 - 17.9 10/11 Specimen Type: BLOOD Comment: Automated Differentia l Performed Ordering Provider: MARLON PAIGE Report Released Date/Time: Oct 09, 2024 09:31 AM Reporting Lab: [facility] [address] Performing Lab: [facility] [address] [place] [facility] CBC & DIFF HEMATOCRIT [VOLUME FRACTION] OF BLOOD BY AUTOMATED COUNT 43.9 41.0 - 54.0 10/11 Specimen Type: BLOOD Comment: Automated Differentia l Performed Ordering Provider: MARLON PAIGE Report Released Date/Time: Oct 09, 2024 09:31 AM Reporting Lab: [facility] [address] Performing Lab: [facility] [address] [place] [facility] CBC & DIFF MCV [ENTITIC VOLUME] BY AUTOMATED COUNT 87.8 fL 80.0 - 100.0 10/11 Specimen Type: BLOOD Comment: Automated Differentia l Performed Ordering Provider: MARLON PAIGE Report Released Date/Time: Oct 09, 2024 09:31 AM Reporting Lab: [facility] [address] Performing Lab: [facility] [address] [place] [facility] CBC & DIFF MCH [ENTITIC MASS] BY AUTOMATED COUNT 29.6 pg 27.0 - 33.0 10/11 Specimen Type: BLOOD Comment: Automated Differentia l Performed Ordering Provider: MARLON PAIGE Report Released Date/Time: Oct 09, 2024 09:31 AM Reporting Lab: [facility] [address] Performing Lab: [facility] [address] [place] [facility] CBC & DIFF MCHC [MASS/VOLU ME] BY AUTOMATED COUNT 33.7 g/dL 32.0 - 37.5 10/11 Specimen Type: BLOOD Comment: Automated Differentia l Performed Ordering Provider: MARLON PAIGE Report Released Date/Time: Oct 09, 2024 09:31 AM Reporting Lab: [facility] [address] Performing Lab: [facility] [address] [place] [facility] CBC & DIFF PLATELETS [#/VOLUME] IN BLOOD BY AUTOMATED COUNT 191 150 - 400 10/11 Specimen Type: BLOOD Comment: Automated Differentia l Performed Ordering Provider: MARLON PAIGE Report Released Date/Time: Oct 09, 2024 09:31 AM Reporting Lab: [facility] [address] Performing Lab: [facility] [address] [place] [facility] CBC & DIFF PLATELET MEAN VOLUME [ENTITIC VOLUME] IN BLOOD BY AUTOMATED COUNT 10.1 fL 9.1 - 13.0 10/11 Specimen Type: BLOOD Comment: Automated Differentia l Performed Ordering Provider: MARLON PAIGE Report Released Date/Time: Oct 09, 2024 09:31 AM Reporting Lab: [facility] [address] Performing Lab: [facility] [address] [place] [facility] CBC & DIFF NEUTROPHIL S/100 LEUKOCYTES IN BLOOD BY MANUAL COUNT 66.8 40.0 - 80.0 10/11 Specimen Type: BLOOD Comment: Automated Differentia l Performed Ordering Provider: MARLON PAIGE Report Released Date/Time: Oct 09, 2024 09:31 AM Reporting Lab: [facility] [address] Performing Lab: [facility] [address] [place] [facility] CBC & DIFF LYMPHOCYTE S/100 LEUKOCYTES IN BLOOD BY MANUAL COUNT 20.8 15.0 - 45.0 10/11 Specimen Type: BLOOD Comment: Automated Differentia l Performed Ordering Provider: MARLON PAIGE Report Released Date/Time: Oct 09, 2024 09:31 AM Reporting Lab: [facility] [address] Performing Lab: [facility] [address] [place] [facility] CBC & DIFF MONOCYTES/ 100 LEUKOCYTES IN BLOOD BY AUTOMATED COUNT 6.3 2.0 - 12.0 10/11 Specimen Type: BLOOD Comment: Automated Differentia l Performed Ordering Provider: MARLON PAIGE Report Released Date/Time: Oct 09, 2024 09:31 AM Reporting Lab: [facility] [address] Performing Lab: [facility] [address] [place] [facility] CBC & DIFF EOSINOPHIL S/100 LEUKOCYTES IN BLOOD BY AUTOMATED COUNT 5.2 0.0 - 6.0 10/11 Specimen Type: BLOOD Comment: Automated Differentia l Performed Ordering Provider: MARLON PAIGE Report Released Date/Time: Oct 09, 2024 09:31 AM Reporting Lab: [facility] [address] Performing Lab: [facility] [address] [place] [facility] CBC & DIFF BASOPHILS/ 100 LEUKOCYTES IN BLOOD BY MANUAL COUNT 0.6 0.0 - 2.0 10/11 Specimen Type: BLOOD Comment: Automated Differentia l Performed Ordering Provider: MARLON PAIGE Report Released Date/Time: Oct 09, 2024 09:31 AM Reporting Lab: [facility] [address] Performing Lab: [facility] [address] [place] [facility] CBC & DIFF ERYTHROCYT E DISTRIBUTI ON WIDTH [RATIO] BY AUTOMATED COUNT 13.9 11.5 - 14.5 10/11 Specimen Type: BLOOD Comment: Automated Differentia l Performed Ordering Provider: MARLON PAIGE Report Released Date/Time: Oct 09, 2024 09:31 AM Reporting Lab: [facility] [address] Performing Lab: [facility] [address] [place] [facility] CBC & DIFF LYMPHOCYTE S [#/VOLUME] IN BLOOD BY AUTOMATED COUNT 1.3 1.0 - 4.0 10/11 Specimen Type: BLOOD Comment: Automated Differentia l Performed Ordering Provider: MARLON PAIGE Report Released Date/Time: Oct 09, 2024 09:31 AM Reporting Lab: [facility] [address] Performing Lab: [facility] [address] [place] [facility] CBC & DIFF MONOCYTES [#/VOLUME] IN BLOOD BY AUTOMATED COUNT 0.4 0.1 - 1.0 10/11 Specimen Type: BLOOD Comment: Automated Differentia l Performed Ordering Provider: MARLON PAIGE Report Released Date/Time: Oct 09, 2024 09:31 AM Reporting Lab: [facility] [address] Performing Lab: [facility] [address] [place] [facility] CBC & DIFF NEUTROPHIL S [#/VOLUME] IN BLOOD BY AUTOMATED COUNT 4.2 2.0 - 7.7 10/11 Specimen Type: BLOOD Comment: Automated Differentia l Performed Ordering Provider: MARLON PAIGE Report Released Date/Time: Oct 09, 2024 09:31 AM Reporting Lab: [facility] [id number] Performing Lab: [facility] [id number] [place] [facility] CBC & DIFF EOSINOPHIL S [#/VOLUME] IN BLOOD BY AUTOMATED COUNT 0.3 0.0 - 0.5 10/11 Specimen Type: BLOOD Comment: Automated Differentia l Performed Ordering Provider: MARLON PAIGE Report Released Date/Time: Oct 09, 2024 09:31 AM Reporting Lab: [facility] [id number] Performing Lab: [facility] [id number] [place] [facility] CBC & DIFF BASOPHILS [#/VOLUME] IN BLOOD BY AUTOMATED COUNT 0.0 0.0 - 0.2 10/11 Specimen Type: BLOOD Comment: Automated Differentia l Performed Ordering Provider: MARLON PAIGE Report Released Date/Time: Oct 09, 2024 09:31 AM Reporting Lab: [facility] [address] Performing Lab: [facility] [address] [place] [facility] CBC & DIFF IG(META,MY BEENA,PRO) 0.3 10/11 Specimen Type: BLOOD Comment: Automated Differentia l Performed Ordering Provider: MARLON PAIGE Report Released Date/Time: Oct 09, 2024 09:31 AM Reporting Lab: [facility] [address] Performing Lab: [facility] [address] [place] [facility] CBC & DIFF IMMATURE GRANULOCYT ES [PRESENCE] IN BLOOD BY AUTOMATED COUNT 0.0 0.0 - 0.1 10/11 Specimen Type: BLOOD Comment: Automated Differentia l Performed Ordering Provider: MARLON PAIGE Report Released Date/Time: Oct 09, 2024 09:31 AM Reporting Lab: [facility] [address] Performing Lab: [facility] [address] [place] [facility] EXTRA MINT TUBE EXTRA MINT TUBE RECEIVED 07/21 Specimen Type: PLASMA No comment entered. Ordering Provider: SHANTANU DAILY Report Released Date/Time: Jul 21, 2024 02:22 PM Reporting Lab: [facility] [address] Performing Lab: [facility] [address] [place] [facility] SED RATE ERYTHROCYT E SEDIMENTAT ION RATE 10 mm/h 5 - 15 07/21 Specimen Type: BLOOD No comment entered. Ordering Provider: SHANTANU DAILY Report Released Date/Time: Jul 21, 2024 02:04 PM Reporting Lab: [facility] [address] Performing Lab: [facility] [address] [place] [facility] C-REACTI VE PROTEIN C REACTIVE PROTEIN [MASS/VOLU ME] IN SERUM OR PLASMA BY HIGH SENSITIVIT Y METHOD 8.04 mg/L <5.00 - 5.00 07/21 H Specimen Type: SERUM No comment entered. Ordering Provider: SHANTANU DAILY Report Released Date/Time: Jul 21, 2024 02:04 PM Reporting Lab: [facility] [address] Performing Lab: [facility] [address] [place] [facility] EXTRA BLUE TUBE EXTRA BLUE TUBE RECEIVED 07/21 Specimen Type: PLASMA No comment entered. Ordering Provider: SHANTANU DAILY Report Released Date/Time: Jul 21, 2024 02:22 PM Reporting Lab: [facility] [address] Performing Lab: [facility] [address] [place] [facility] CBC & DIFF LEUKOCYTES [#/VOLUME] IN BLOOD BY AUTOMATED COUNT 8.2 4.0 - 11.0 07/21 Specimen Type: BLOOD Comment: Automated Differentia l Performed Ordering Provider: SHANTANU DAILY Report Released Date/Time: Jul 21, 2024 02:04 PM Reporting Lab: [facility] [address] Performing Lab: [facility] [address] [place] [facility] CBC & DIFF ERYTHROCYT ES [#/VOLUME] IN BLOOD BY AUTOMATED COUNT 4.71 4.60 - 6.20 07/21 Specimen Type: BLOOD Comment: Automated Differentia l Performed Ordering Provider: SHANTANU DAILY Report Released Date/Time: Jul 21, 2024 02:04 PM Reporting Lab: [facility] [address] Performing Lab: [facility] [address] [place] [facility] CBC & DIFF HEMOGLOBIN [MASS/VOLU ME] IN BLOOD 14.3 g/dL 13.5 - 17.9 07/21 Specimen Type: BLOOD Comment: Automated Differentia l Performed Ordering Provider: SHANTANU DAILY Report Released Date/Time: Jul 21, 2024 02:04 PM Reporting Lab: [facility] [address] Performing Lab: [facility] [address] [place] [facility] CBC & DIFF HEMATOCRIT [VOLUME FRACTION] OF BLOOD BY AUTOMATED COUNT 42.6 41.0 - 54.0 07/21 Specimen Type: BLOOD Comment: Automated Differentia l Performed Ordering Provider: SHANTANU DAILY Report Released Date/Time: Jul 21, 2024 02:04 PM Reporting Lab: [facility] [address] Performing Lab: [facility] [address] [place] [facility] CBC & DIFF MCV [ENTITIC VOLUME] BY AUTOMATED COUNT 90.4 fL 80.0 - 100.0 07/21 Specimen Type: BLOOD Comment: Automated Differentia l Performed Ordering Provider: SHANTANU DAILY Report Released Date/Time: Jul 21, 2024 02:04 PM Reporting Lab: [facility] [address] Performing Lab: [facility] [address] [place] [facility] CBC & DIFF MCH [ENTITIC MASS] BY AUTOMATED COUNT 30.4 pg 27.0 - 33.0 07/21 Specimen Type: BLOOD Comment: Automated Differentia l Performed Ordering Provider: SHANTANU DAILY Report Released Date/Time: Jul 21, 2024 02:04 PM Reporting Lab: [facility] [address] Performing Lab: [facility] [address] [place] [facility] CBC & DIFF MCHC [MASS/VOLU ME] BY AUTOMATED COUNT 33.6 g/dL 32.0 - 37.5 07/21 Specimen Type: BLOOD Comment: Automated Differentia l Performed Ordering Provider: SHANTANU DAILY Report Released Date/Time: Jul 21, 2024 02:04 PM Reporting Lab: [facility] [address] Performing Lab: [facility] [address] [place] [facility] CBC & DIFF PLATELETS [#/VOLUME] IN BLOOD BY AUTOMATED COUNT 201 150 - 400 07/21 Specimen Type: BLOOD Comment: Automated Differentia l Performed Ordering Provider: SHANTANU DAILY Report Released Date/Time: Jul 21, 2024 02:04 PM Reporting Lab: [facility] [address] Performing Lab: [facility] [address] [place] [facility] CBC & DIFF PLATELET MEAN VOLUME [ENTITIC VOLUME] IN BLOOD BY AUTOMATED COUNT 9.3 fL 9.1 - 13.0 07/21 Specimen Type: BLOOD Comment: Automated Differentia l Performed Ordering Provider: SHANTANU DAILY Report Released Date/Time: Jul 21, 2024 02:04 PM Reporting Lab: [facility] [address] Performing Lab: [facility] [address] [place] [facility] CBC & DIFF NEUTROPHIL S/100 LEUKOCYTES IN BLOOD BY MANUAL COUNT 67.5 40.0 - 80.0 07/21 Specimen Type: BLOOD Comment: Automated Differentia l Performed Ordering Provider: SHANTANU DAILY Report Released Date/Time: Jul 21, 2024 02:04 PM Reporting Lab: [facility] [address] Performing Lab: [facility] [address] [place] [facility] CBC & DIFF LYMPHOCYTE S/100 LEUKOCYTES IN BLOOD BY MANUAL COUNT 23.9 15.0 - 45.0 07/21 Specimen Type: BLOOD Comment: Automated Differentia l Performed Ordering Provider: SHANTANU DAILY Report Released Date/Time: Jul 21, 2024 02:04 PM Reporting Lab: [facility] [address] Performing Lab: [facility] [address] [place] [facility] CBC & DIFF MONOCYTES/ 100 LEUKOCYTES IN BLOOD BY AUTOMATED COUNT 5.5 2.0 - 12.0 07/21 Specimen Type: BLOOD Comment: Automated Differentia l Performed Ordering Provider: SHANTANU DAILY Report Released Date/Time: Jul 21, 2024 02:04 PM Reporting Lab: [facility] [address] Performing Lab: [facility] [address] [place] [facility] CBC & DIFF EOSINOPHIL S/100 LEUKOCYTES IN BLOOD BY AUTOMATED COUNT 2.5 0.0 - 6.0 07/21 Specimen Type: BLOOD Comment: Automated Differentia l Performed Ordering Provider: SHANTANU DAILY Report Released Date/Time: Jul 21, 2024 02:04 PM Reporting Lab: [facility] [address] Performing Lab: [facility] [address] [place] [facility] CBC & DIFF BASOPHILS/ 100 LEUKOCYTES IN BLOOD BY MANUAL COUNT 0.4 0.0 - 2.0 07/21 Specimen Type: BLOOD Comment: Automated Differentia l Performed Ordering Provider: SHANTANU DAILY Report Released Date/Time: Jul 21, 2024 02:04 PM Reporting Lab: [facility] [address] Performing Lab: [facility] [address] [place] [facility] CBC & DIFF ERYTHROCYT E DISTRIBUTI ON WIDTH [RATIO] BY AUTOMATED COUNT 13.6 11.5 - 14.5 07/21 Specimen Type: BLOOD Comment: Automated Differentia l Performed Ordering Provider: SHANTANU DAILY Report Released Date/Time: Jul 21, 2024 02:04 PM Reporting Lab: [facility] [address] Performing Lab: [facility] [address] [place] [facility] CBC & DIFF LYMPHOCYTE S [#/VOLUME] IN BLOOD BY AUTOMATED COUNT 2.0 1.0 - 4.0 07/21 Specimen Type: BLOOD Comment: Automated Differentia l Performed Ordering Provider: SHANTANU DAILY Report Released Date/Time: Jul 21, 2024 02:04 PM Reporting Lab: [facility] [address] Performing Lab: [facility] [address] [place] [facility] CBC & DIFF MONOCYTES [#/VOLUME] IN BLOOD BY AUTOMATED COUNT 0.5 0.1 - 1.0 07/21 Specimen Type: BLOOD Comment: Automated Differentia l Performed Ordering Provider: SHANTANU DAILY Report Released Date/Time: Jul 21, 2024 02:04 PM Reporting Lab: [facility] [address] Performing Lab: [facility] [address] [place] [facility] CBC & DIFF NEUTROPHIL S [#/VOLUME] IN BLOOD BY AUTOMATED COUNT 5.5 2.0 - 7.7 07/21 Specimen Type: BLOOD Comment: Automated Differentia l Performed Ordering Provider: SHANTANU DAILY Report Released Date/Time: Jul 21, 2024 02:04 PM Reporting Lab: [facility] [address] Performing Lab: [facility] [address] [place] [facility] CBC & DIFF EOSINOPHIL S [#/VOLUME] IN BLOOD BY AUTOMATED COUNT 0.2 0.0 - 0.5 07/21 Specimen Type: BLOOD Comment: Automated Differentia l Performed Ordering Provider: SHANTANU DAILY Report Released Date/Time: Jul 21, 2024 02:04 PM Reporting Lab: [facility] [address] Performing Lab: [facility] [address] [place] [facility] CBC & DIFF BASOPHILS [#/VOLUME] IN BLOOD BY AUTOMATED COUNT 0.0 0.0 - 0.2 07/21 Specimen Type: BLOOD Comment: Automated Differentia l Performed Ordering Provider: SHANTANU DAILY Report Released Date/Time: Jul 21, 2024 02:04 PM Reporting Lab: [facility] [address] Performing Lab: [facility] [address] [place] [facility] CBC & DIFF IG(META,MY BEENA,PRO) 0.2 07/21 Specimen Type: BLOOD Comment: Automated Differentia l Performed Ordering Provider: SHANTANU DAILY Report Released Date/Time: Jul 21, 2024 02:04 PM Reporting Lab: [facility] [address] Performing Lab: [facility] [address] [place] [facility] CBC & DIFF IMMATURE GRANULOCYT ES [PRESENCE] IN BLOOD BY AUTOMATED COUNT 0.0 0.0 - 0.1 11/30 /2024 Specimen Type: BLOOD Comment: Automated Differentia l Performed Ordering Provider: SHANTANU DAILY Report Released Date/Time: Jul 21, 2024 02:04 PM Reporting Lab: [facility] [address] Performing Lab: [facility] [address] [facility] EXTRA BLUE TUBE EXTRA BLUE TUBE RECEIVED 07/10 Specimen Type: PLASMA No comment entered. Ordering Provider: BARRY MUÑOZ Report Released Date/Time: Jul 10, 2024 07:39 PM Reporting Lab: [facility] [address] Performing Lab: [facility] [address] [facility] Vital Signs Combined list of inpatient and outpatient Vital Signs from Department of Defense and Veterans Affairs, ranging from 12 months to all on record, depending upon the facility. Vital Sign Value Date Comments Source SYSTOLIC BLOOD PRESSURE 126 10/26/2024 09:09:54 [facility] DIASTOLIC BLOOD PRESSURE 80 10/26/2024 09:09:54 [facility] PULSE OXIMETRY 95 10/26/2024 09:09:54 L [facility] WEIGHT 256.1 10/26/2024 09:09:54 [facility] BMI 33 kg/m2 10/26/2024 09:09:54 [facility] PAIN 0 10/26/2024 09:09:54 [facility] HEIGHT 74 10/26/2024 09:09:54 [facility] TEMPERATURE 98.6 10/26/2024 09:09:54 [facility] PULSE 77 10/26/2024 09:09:54 [facility] RESPIRATION 20 10/26/2024 09:09:54 [facility] SYSTOLIC BLOOD PRESSURE 118 10/15/2024 08:42:09 [facility] DIASTOLIC BLOOD PRESSURE 85 10/15/2024 08:42:09 [facility] PULSE OXIMETRY 95 10/15/2024 08:42:09 [place] [facility] PAIN 4 10/15/2024 08:42:09 [place] [facility] TEMPERATURE 97 10/15/2024 08:42:09 [facility] PULSE 76 10/15/2024 08:42:09 [facility] RESPIRATION 16 10/15/2024 08:42:09 [facility] SYSTOLIC BLOOD PRESSURE 127 10/11/2024 15:28:03 [facility] DIASTOLIC BLOOD PRESSURE 82 10/11/2024 15:28:03 [facility] PULSE OXIMETRY 96 10/11/2024 15:28:03 [facility] WEIGHT 256.1 10/11/2024 15:28:03 [facility] BMI 33 kg/m2 10/11/2024 15:28:03 [facility] PAIN 6 10/11/2024 15:28:03 [facility] HEIGHT 74 10/11/2024 15:28:03 [facility] TEMPERATURE 97.8 10/11/2024 15:28:03 [facility] PULSE 105 10/11/2024 15:28:03 [facility] RESPIRATION 20 10/11/2024 15:28:03 [facility] SYSTOLIC BLOOD PRESSURE 126 10/07/2024 02:41:05 [facility] DIASTOLIC BLOOD PRESSURE 92 10/07/2024 02:41:05 [facility] PULSE OXIMETRY 98 10/07/2024 02:41:05 [facility] PAIN 9 10/07/2024 02:41:05 [facility] TEMPERATURE 98.2 10/07/2024 02:41:05 [facility] PULSE 82 10/07/2024 02:41:05 [facility] RESPIRATION 18 10/07/2024 02:41:05 [facility] SYSTOLIC BLOOD PRESSURE 148 07/21/2024 13:18:00 [facility] DIASTOLIC BLOOD PRESSURE 101 07/21/2024 13:18:00 [facility] TEMPERATURE 98.2 07/21/2024 13:18:00 [facility] PULSE 88 07/21/2024 13:18:00 [facility] RESPIRATION 16 07/21/2024 13:18:00 [facility] Encounters Combined list of: 1) Encounters from Department of Veterans Affairs facilities going backup to the last 18 months, not all [place] inpatient encounters are included; 2) Encounters from the Department of Defense facilities going backup to 280 months. Location Location Details Encounter Type Encounter Number Reason For Visit Attending Provider ADM Date DC Date Status Disposition Source [place] [facility] Outpatient Encounter [id number] 07/12 [facility] [place] [facility] Outpatient Encounter [id number] LUZ MARIA GALDAMEZ 08/17 [facility] [place] [facility] OFFICE O/P NEW MOD 45 MIN [id number] Diagnos is: ICD-10- CM M77.42 Metatar salgia, left foot JUANA LOBATO 08/31 [facility] [place] [facility] Outpatient Encounter [id number] 08/31 [facility] [place] [facility] Outpatient Encounter [id number] 10/12 [facility] [place] [facility] Outpatient Encounter [id number] HIRAM CANCINO 10/13 [facility] [place] [facility] Outpatient Encounter [id number] 10/20 [facility] OFFICE O/P EST MOD 30 MIN [id number] Diagnos is: ICD-10- CM Z00.01 Encount er for general adult medical exam w abnorma l finding s EMELIA GREENBERG 10/20 [facility] [place] [facility] Outpatient Encounter [id number] 10/27 [facility] [place] [facility] Outpatient Encounter [id number] 11/01 [facility] [place] [facility] OFFICE O/P EST LOW 20 MIN [id number] Diagnos is: ICD-10- CM M72.2 Plantar fascial fibroma tosis LUIS ALFREDO,AM JUAN CARLOS LUCIAN 11/01 [facility] [place] [facility] Outpatient Encounter [id number] Kat CHRISTIAN 11/02 [facility] [place] [facility] Outpatient Encounter [id number] 12/01 [facility] [place] [facility] Outpatient Encounter [id number] 12/14 [facility] [place] [facility] Outpatient Encounter [id number] 01/01 [facility] [place] [facility] Outpatient Encounter [id number] 02/26 [facility] OFFICE O/P EST MOD 30 MIN [id number] Diagnos is: ICD-10- CM M71.372 Other bursal cyst, left ankle and foot JUANA LOBATO 02/27 [facility] [place] [facility] Outpatient Encounter [id number] 02/28 [facility] [place] [facility] Outpatient Encounter [id number] 03/01 [facility] [place] [facility] Outpatient Encounter [id number] 03/01 [facility] SELF CARE MNGMENT TRAINING [id number] Diagnos is: ICD-10- CM M79.672 Pain in left foot JENNIFER BELL A 03/07 [facility] ELECTROCAR DIOGRAM COMPLETE [id number] Diagnos is: ICD-10- CM Z13.6 Encount er for screeni ng for cardiov ascular disorde BLANK Eastman 03/07 [facility] Outpatient Encounter [id number] Diagnos is: ICD-10- CM M72.2 Plantar fascial fibroma tosis JUANA LOBATO 03/07 [facility] OFFICE O/P EST MOD 30 MIN [id number] Diagnos is: ICD-10- CM M51.9 Unsp thoraci c, 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 Diagnos is: ICD-10- CM Z01.818 Encount er for other preproc edural examina tion KYLE HENDERSON NSTANCE L 03/19 [facility] Outpatient Encounter [id number] KYLE HENDERSON NSTANCE L 03/19 [facility] Outpatient Encounter [id number] JUANA LOBATO 03/19 [facility] REMOVAL OF FOOT LESION [id number] Kat MCKEON 03/19 [facility] URGENT CARE PHYSICIAN ASSISTANT ASSOCIATE SALES INDIVIDU [id number] Diagnos is: ICD-10- CM Z71.81 Spiritu al or religio us employment counselor ing Ny FARR 03/19 [facility] Outpatient Encounter [id number] 03/19 [place] [facility] [place] [facility] Outpatient Encounter [id number] 03/21 [place] [facility] [place] [facility] Outpatient Encounter [id number] VAMSHI TOSCANO 03/22 [place] [facility] [place] [facility] OFFICE O/P EST MOD 30 MIN [id number] Diagnos is: ICD-10- CM L72.0 Epiderm al cyst LOBATO,AM JUAN CARLOS LUCIAN 03/28 [place] [facility] [place] [facility] OFFICE O/P EST LOW 20 MIN [id number] Diagnos is: ICD-10- CM L72.0 Epiderm al cyst LOBATO,AM JUAN CARLOS LUCIAN 04/06 [place] [facility] [place] [facility] Outpatient Encounter [id number] 05/04 [place] [facility] [place] [facility] Outpatient Encounter [id number] 05/07 [facility] [place] [facility] Outpatient Encounter [id number] OLAMIDE SMYTH 06/01 [facility] [place] [facility] Outpatient Encounter [id number] 06/08 [facility] [place] [facility] Outpatient Encounter [id number] 06/08 [place] [facility] [place] [facility] Outpatient Encounter [id number] SA RA Rafia DELGADO 06/26 [facility] OFFICE O/P EST LOW 20 MIN [id number] Diagnos is: ICD-10- CM B07.0 Plantar EMELIA Gonzalez 06/28 [facility] [place] [facility] EMERGENCY DEPT VISIT MOD MDM [id number] Diagnos is: ICD-10- CM M10.9 Gout, unspeci fied JURAO,ARTH UR R 07/10 [facility] [place] [facility] EMERGENCY DEPT VISIT MOD MDM [id number] Diagnos is: ICD-10- CM S91.302 A Unspeci fied open wound, left foot, initial encount er MOLLY DIALY 07/21 [facility] [place] [facility] Outpatient [facility]counter [id number] 07/21 [facility] [place] [facility] OFFICE O/P EST LOW 20 MIN [id number] Diagnos is: ICD-10- CM L72.0 Epiderm al cyst NICHOLAS PAIGE 07/25 [facility] [place] [facility] Outpatient Encounter [id number] EMELIA GREENBERG 07/26 [facility] [place] [facility] Outpatient Encounter [id number] 08/02 [facility] [place] [facility] Outpatient Encounter [id number] 08/13 [facility] [place] [facility] Outpatient Encounter [id number] 08/13 [facility] [place] [facility] Outpatient Encounter [id number] 08/13 [facility] [place] [facility] Outpatient Encounter [id number] 08/30 [facility] SYNCH AUDIO-ONLY EST LOW 20 [id number] Diagnos is: ICD-10- CM L72.0 Epiderm al cyst NICHOLAS PAIGE 08/31 [facility] [place] [facility] Outpatient Encounter [id number] 09/03 [facility] OFF[facility] O/P EST LOW 20 MIN [id number] Diagnos is: ICD-10- CM L72.0 Epiderm al cyst NICHOLAS PAIGEN 09/24 [facility] Outpatient Encounter [id number] NICHOLAS PAIGE 10/04 [facility] Outpatient Encounter [id number] 10/05 [facility] EMERGENCY DEPT VISIT MOD MDM [id number] Diagnos is: ICD-10- CM L02.612 [place] abscess of left foot TRACEE AVILEZ A 10/07 [facility] Outpatient Encounter [id number] 10/09 [facility] ELECTROCAR DIOGRAM REPORT [id number] Diagnos is: ICD-10- CM Z13.6 Encount er for screeni ng for cardiov ascular disorde rs Ina ADAM 10/11 [facility] OFFICE O/P EST MOD 30 MIN [id number] Diagnos is: ICD-10- CM M51.9 Unsp thoraci c, 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 LISA RING 10/11 [facility] Outpatient Encounter [id number] JUANA LOBATO 10/15 [facility] OFFICE O/P EST LOW 20 MIN [id number] Diagnos is: ICD-10- CM Z01.818 Encount er for other preproc edural examina FAVIAN Pascual 10/15 [facility] Outpatient Encounter [id number] FAVIAN LAROSE E E 10/15 [place] [facility] [place] [facility] Outpatient Encounter [id number] 10/15 [place] [facility] [place] [facility] Outpatient Encounter [id number] FAVIAN LAROSE E E 10/15 [place] [facility] [place] [facility] Outpatient Encounter [id number] JUANA LOBATO 10/15 [facility] I&D ABSCESS COMP/MULTI PLE [id number] BIANCA ACOSTA 10/15 [facility] Outpatient Encounter [id number] 10/15 [facility] [place] [facility] Outpatient Encounter [id number] RA YOHANNES DANIAL A 10/17 [facility] Outpatient Encounter [id number] SA RA Rafia DELGADO 10/18 [facility] OFFICE O/P EST MOD 30 MIN [id number] Diagnos is: ICD-10- CM L02.611 [place] abscess of right foot JUANA LOBATO 10/23 [facility] Outpatient Encounter [id number] Diagnos is: ICD-10- CM Z00.00 Encntr for general adult medical exam w/o abnorma l finding s EMELIA GREENBERG 10/26 [facility] [place] [facility] Outpatient Encounter [id number] 10/30 [facility] [place] [facility] Outpatient Encounter [id number] EMELIA GREENBERG 10/31 [facility] [place] [facility] OFFICE O/P EST MOD 30 MIN [id number] Diagnos is: ICD-10- CM M72.2 Plantar fascial fibroma JUANA Griffin 11/07 [place] [facility] OFFICE O/P EST MOD 30 MIN [id number] Diagnos is: ICD-10- CM L02.612 [place] abscess of left foot JUANA LOBATO 11/21 [place] [facility] [facility] Outpatient Encounter [id number] 12/20 [facility] Procedures Combined list of: 1) Procedures from Department of Veterans Affairs facilities going back up to thelast 18 months, not all [place] non-surgical procedures are included; 2) All procedures from the Department of Defense facilities. Procedure Procedure Type Code Date Perfomer Comments Sourc e Left foot incision and drainage I&D ABSCESS COMP/MULTIPLE 58900 10/15/2024 [facility] Removal of bursa left foot REMOVAL OF FOOT LESION 24283 03/19/2024 [facility] Social History Combined list of available smoking, tobacco, and other social history from Department of Defense and Veterans Affairs facilities. Social History Type Response Date Comment Sourc e Tobacco smoking status [facility]VIS [facility]-TOBACCO USE SOME DAYS CIGARETTES 10/26/2024 [facility] 10/26[facility]20[facility] History of tobacco use VA-TOBACCO USER E VERY DAY 10/21/2023 [facility] History of tobacco use [facility]-TOBACCO USER E VERY DAY 10/22/2022 [facility] History of tobacco use [place]-TOBACCO USER S OME DAYS 10/23/2021 [facility] Plan of Care List of future care activities from Department of Veterans Affairs facilities. Additional future care activities may be listed in the Assessment and Plan section. Date/Time Care Activity Care Activity Detail Facili ty 02/21/2025 AMBULATORY - SURGERY AMBULATORY - SURGERY [facility]
--- OUTSIDE RECORDS SUMMARY | 2024-12-20 13:29 | XMS_ITS | Encounter Summary ---
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 [facility] [place] Address [address] [place] [address] Care Team Providers Care Decorator [employer] Name Role Phone DOMENIC GREENBERG Primary Care Provider Unavailchantelle mead Insurance Providers: All historical and current [...] DEDUCTIBL E HEALTH PLAN W/HEALTH SAVINGS [facility] Aug 22, 2020 [id number] AS1 [id number] [phone] HARPREET LOPEZ PATIENT [place] DEDUCTIBL E HEALTH PLAN W/HEALTH SAVINGS [facility] Aug 22, 2020 [id number] [phone] HARPREET LOPEZ PATIENT [place] ([id number]) PRESCRIPT [facility] Aug 22, 2020 [id number] [phone] HARPREET LOPEZ PATIENT [place] ([id number]) PRESCRIPT [facility] Aug 22, 2020 [id number] [phone] HARPREET LOPEZ PATIENT Selected Encounter This section includes the information on record at [place] for the Encounter. Date/Time Encounter Type Encounter Description Reason Pro vider Source December 20, 2024 12:29 PM Outpatient Encounter TELEPHONE TRIAGE IHE Encounter Template Text not used by [place] Plan of Treatment: Future Appointments (+ 6 months) and Future Tests (+/- 45 days) The Plan of Treatment section includes future care activities for the patient from all [place] treatment[facility] healthities. This section includes future appointments and future orders which are active, pending or scheduled. Future Appointments This section includes appointments that were scheduled to occur 6 months from the date of the Encounter, up to a maximum of 20 appointments. The data comes from all [facility] facilities. Appointment Date/Time Appointment Type Appointme nt Facility Name Feb 21, 2025 01:30 PM AMBULATORY - SURGERY [facility] Encounter Notes: All associated encounter notes This section contains the clinical notes associated to the Encounter. Date/Time Encounter Note(s) Provider Source December 20, 2024 12:29 PM RN PROGRESS NOTE: LOCAL TITLE: CCC: CLINICAL TRIAGE STANDARD TITLE: RN PROGRESS NOTE DATE OF NOTE: DECEMBER 20, 2024@12:29:46 ENTRY DATE: DECEMBER 20, 2024@12:29:46 AUTHOR: ELSA GUTIERREZ COSIGNER: URGENCY: STATUS: COMPLETED Caller Verification Caller/Recipient Relation to Patient: Self Caller Name: JOHN LOPEZ Triage Summary Conducted triage/discussed symptoms Pain Score: 4 Utilized the Triage Tool: Yes Chief Complaint: Calf Swelling (one leg) System WHEN: Now Nurse's Recommendation / WHEN: Now System WHERE: Emergency department Nurse's Recommendation / WHERE: ED Other Patient Disposition Patient/Caregiver agrees to plan of care: Yes Nursing Plan and Disposition Referred patient to higher level of care Instructed to go to Emergency Room (ER) Nurse Summary Nurse Summary: PATIENT CONCERN/DURATION/ONSET: Cheraw c/o onset of left knee pain on Tuesday. Yesterday he noted that his pant leg on his left calf area was tight and noted that the calf is swollen and painful. Pain is rated at 4/10. He does not know of any precipitating event/injury. There is no swelling that he can see below the calf. He does not there is pain when moving lower leg. He denies redness, shortness of breath, chest pain, cough/coughing up blood. WHAT HAS PATIENT TRIED TO TREAT THE SYMPTOMS: Tylenol not effective. HISTORY/PREVIOUS TREATMENT: History of gastric bypass, varicose veins of bilateral lower limbs. WHAT IS PATIENT GOAL FOR THE CALL: Recommendation Was Virtual Care Visit considered (TELE or VVC)? No. 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 Advised any worsening symptoms such as cough, shortness of breath, chest pain then call for EMS. Cheraw given ER notification number to call within 72 hours. Cheraw agreeable to plan of care . Best contact for Cheraw is [phone] (Verified). This note was created by a 3 [facility] RN. Please do not alert this nurse by adding as a signer for future communications. Alerts are not monitored by this user, please reach out to [facility] Leadership instead if indicated. Clinical Contact Center Codes Clinic/Location: 3 [facility] PHONE [facility] RN Decision Support System Output: Triage Complete Triage Date: 12/20/2024, 12:28 PM Triage Note: Decision Support Tool Used: HICC Phone Triage , 20 Dec 2024 17:16:28 +0000 [facility] Demographics 59 y/o Male Results CC: Calf Swelling (one leg) Software suggested: Now Software suggested follow-up location: Emergency department Values and Measures Duration of CC: 1 Days Positive Responses HPI: leg pain, with leg swelling HPI: leg tenderness, with leg swelling PMH: DVT VS: respiratory rate not taken VS: temperature not taken Negative Responses Denies: HPI: chest pain, pleuritic Denies: HPI: current symptoms similar to past DVT Denies: HPI: dyspnea, new or worsening Denies: HPI: hemoptysis Denies: HPI: leg swelling, ankle swelling, foot swelling Denies: HPI: leg swelling, since the injury Denies: HPI: skin erythema, leg Denies: HPI: unilateral leg swelling, entire leg Denies: PMH: pulmonary embolism [place] Education Verbal Education Provided: Based on your responses, you should be treated in the emergency room. Take action: You need to see a provider now because your condition could worsen. Consider calling an ambulance if you develop difficulty breathing. IMPORTANT: This note was created by [facility] Clinical Contact Center staff. Please do not alert the staff member by adding them as a signer for future communications. Alerts are not monitored by this user. /darrick/ Elsa Gutierrez, RN, BSN, AMB- Registered Nurse, V23 [facility] Signed: 12/20/2024 12:29 ELSA GUTIERREZ [facility]
--- NOTE | 2024-12-20 13:44 | CRLHL7_ITS ---
For Patients: As a result of the Century Cures Act, medical imaging exams and procedure reports are released immediately into your electronic medical record. You may view this report before your referring provider. If you have questions, please contact your health care provider. INDICATION: Swelling and tenderness COMPARISON: None. TECHNIQUE: Guzmán-scale, color, and duplex Doppler imaging of the left lower extremity veins. Compression and augmentation attempted where anatomically and clinically feasible. FINDINGS: Laterality: Left Examined veins: Common femoral, proximal deep femoral, superficial femoral, popliteal, peroneal, posterior tibial Proximal greater saphenous The examined veins are patent with normal grayscale appearance and normal compressibility where anatomically feasible. Normal color Doppler flow. Normal venous waveforms on duplex Doppler ultrasound with normal augmentation. The right common femoral vein is sampled for comparison and is normal. IMPRESSION: No deep vein thrombosis in the left lower extremity. Dictated by Danielle Thomson MD @ 12/20/2024 2:22:00 PM (Electronically Signed)
--- NOTE | 2024-12-20 13:45 | ED_ITS ---
HPI - General Adult General Chief complaint: Extremity Pain/Injury, Lower Stated complaint: swollen L leg Time Seen by Provider: 12/20/24 13:36 Source: patient Mode of arrival: ambulatory Limitations: no limitations History of Present Illness HPI narrative: 59-year-old male presents to the emergency department with a couple day history of increasing gradual pain in the left leg. No injury or trauma. Pain origin ally started cannot behind the left knee achy in nature and now he has noticed swelling that is worsened today throughout the left calf area. He has a notable history of varicose veins and has had vein stripping 3 times. [facility] He had called for an appointment and they advised he be seen sooner due to the concern for acute pathology. No shortness of lyly th. No prior history of DVT or PE. No chest pain. Opposite right leg is unaffected. Did not try any interventions to help with symptoms prior to coming to ED. Past medical history benign per his report. No major long-term health problems or regular use of prescription medications. Does have a sensitivity to dissolve will sutures which caused a repeat infection. ROS is notable for the left leg symptoms only, otherwise denies times 12 systems. No family history of DVT or PE. Related Data Home Medications ?Medication ?Instructions ?Recorded ?Confirmed tadalafil 20 mg tablet PO 12/20/24 zolpidem 12.5 mg tablet,extended 12.5 mg PO QPM PRN 12/20/24 12/20/24 release,multiphase Previous Rx's ?Medication ?Instructions ?Recorded celecoxib 100 mg capsule (Celebrex) 100 mg PO BID PRN joint pain #30 12/20/24 caps Allergies Allergy/AdvReac Type Severity Reaction Status Date / Time dissolvable sutures Allergy Mild repeat Uncoded 12/20/24 13:33 infection Exam Const: Vital Signs, click to edit/add: Vital Signs - 24 hr 12/20/24 13:27 Temperature 98.4 F Pulse Rate [Pulse Oximeter] 93 Respiratory Rate 18 Blood Pressure [Le ft Upper Arm] 124/85 Pulse Oximetry 93 Oxygen Delivery Me thod Room Air Documenting provider has reviewed patient's vital signs: yes Common normals: no apparent distress General appearance: cooperative and well kempt HENMT: Common normals: normocephalic, moist oral mucous membranes and oropharynx normal Head and scalp: normocephalic Mouth: oral and palatal mucosa normal Eye: Common normals: conjunctivae normal General eye: normal appearance of both eyes Conjunctiva: conjunctiva(e) normal Neck & C-Spine: Common normals: no lymphadenopathy General: normal visual inspection Resp: Common normals: normal respiratory effort Effort & inspection: able to speak in complete sentences Extremity: Other: Left leg is noticeably more swollen than right. Slightly warm to the touch and tender to palpation in the calf. No obvious palpable cord. Does have fairly extensive varicose veins on both sides. The knee joint on the left does not have any effusion, redness or warmth. There is no obvious palpable mckeon cyst or abnormality in the popliteal fossa. Swelling of the thigh is less noticeable as compared to the opposite right side. Both sides have normal pedal pulses. Good capillary refill. Psych: Appearance: well kempt Attitude: engaged Mood and affect: euthymic mood Insight: insight good Judgement: judgment good Skin: Common normals: no rashes or lesions noted General skin exam: no rashes or lesions noted Course Course ED Course: 59-year-old male with asymmetric leg swelling and tenderness suspicious for DVT. Other differential diagnosis includes sprain, arthropathy, muscle strain, Mckeon cyst, amongst others. Recommended ultrasound of left leg. Await findings. Reevaluation(s) Time of Reevaluation #1: 14:35 Reevaluation #1: Counseled patient on findings, reassuring. No signs of DVT, cellulitis or Mckeon cyst. I suspect this is a superficial phlebitis as he has had significant difficulties with varicose veins in the past. We discussed use of an anti- inflammatory medicine for a short course to help calm down the inflammation. He tells me that he has a history of gastric bypass and was told not to take these. I said they can be used with some risk in small bursts if taken with food but we have to weigh about the risk and benefit in each case. He says that the pain is bothersome enough that he would like to try a course of this and we discussed the risks and benefits of such. I let him know that he can reduce his risk by taking it with food and by using his low of dose for a short of a duration as possible. I recommended Celebrex 100 mg p.o. b.i.d. for the next 5-7 days, total of 30 tablets dispense with 1 refill if needed. Continue Tylenol as needed also for pain. If symptoms are not starting to improve in 5-7 days, I would recommend that he discontinue the medication and follow up with his primary care provider to discuss additional workup and treatment options. Alarm symptoms reviewed that would warrant ED presentation. He verbalizes underst anding and agreement. Vital Signs Vital signs: Initial Vital Signs Temperature 98.4 F 12/20/24 13:27 Temperature Source Temporal Artery Scan 12/20/24 13:27 Pulse Rate 93 12/20/24 13:27 Respiratory Rate 18 12/20/24 13:27 Blood Pressure 124/85 12/20/24 13:27 Blood Pressure Mean 98 12/20/24 13:27 Blood Pressure Position Sitting 12/20/24 13:27 Pulse Oximetry 93 12/20/24 13:27 Oxygen Delivery Method Room Air 12/20/24 13:27 Vital Signs Temperature 98.4 F 12/20/24 13:27 Pulse Rate 93 12/20/24 13:27 Respiratory Rate 18 12/20/24 13:27 Blood Pressure 124/85 12/20/24 13:27 Pulse Oximetry 93 12/20/24 13:27 Oxygen Delivery Method Room Air 12/20/24 13:27 Temperature 98.4 F 12/20/24 13:27 Pulse Rate 93 12/20/24 13:27 Respiratory Rate 18 12/20/24 13:27 Blood Pressure 124/85 12/20/24 13:27 Pulse Oximetry 93 12/20/24 13:27 Oxygen Delivery Method Room Air 12/20/24 13:27 Medical Decision Making Imaging Data Venous Doppler ultrasound, left leg: Attestation: I have reviewed the pertinent imaging results. My impression: Normal. No signs of DVT, Mckeon cyst or soft tissue inflammation that would suggest cellulitis Radiologist's impression: FINDINGS: Laterality: Left Examined veins: Common femoral, proximal deep femoral, superficial femoral, popliteal, peroneal, posterior tibial Proximal greater saphenous The examined veins are patent with normal grayscale appearance and normal compressibility where anatomically feasible. Normal color Doppler flow. Normal venous waveforms on duplex Doppler ultrasound with normal augmentation. The right common femoral vein is sampled for comparison and is normal. IMPRESSION: No deep vein thrombosis in the left lower extremity. Dictated by Danielle Thomson MD @ 12/20/2024 2:22:00 PM Discharge Plan Discharge Clinical Impression: Phlebitis Patient Disposition: Home, Self-Care Condition: Stable Instructions: Phlebitis (ED) Additional Instructions: As we discussed, there thankfully no signs of blood clot, severe infection, mckeon cyst or other abnormality noted today. This is great news. I do suspect that this is inflammation of the superficial veins which is much safer than any problems in the deep veins. Even with her history of prior stomach surgery, I do think we are safe to try a short course of anti-inflammatory medications. You can reduce her risk of trouble by taking the medication with food and by using as lower dose as works feasibly well for you. I have prescribed twice daily, but you may be able to get by once daily. I would try twice daily with food for the next 3 days and then try to reduce as able. Hopefully things feel much better after about 5-7 days where you could discontinue the medication. If you notice dark tarry stools, please stop the medication. If you have severe abdominal pain, please stop it and begin taking an pfpw-gth-iqydrsc antacid like omeprazole daily. If her symptoms do not improve after 5 days on the medication, I would recommend follow-up with her primary care provider for additional workup regarding your superficial varicose veins. Activity Level: No Restrictions Discharge Diet: Regular Prescriptions: New celecoxib [Celebrex] 100 mg capsule 100 mg PO BID PRN (Reason: joint pain) Qty: 30 1RF No Action tadalafil 20 mg tablet PO zolpidem 12.5 mg tablet,ext release multiphase 12.5 mg PO QPM PRN Stand Alone Forms: [facility] Info Instructions
--- OUTSIDE RECORDS SUMMARY | 2024-12-20 14:47 | XMS_ITS | Clinical Summary ---
Author Organization [facility] Address [address] [place] [id number] Care Team Providers Care Gas Leak Tester Name Role Phone Sterling Servin MD Primary Care Provider Allergies No known active allergies Medications calcium carbonate (TUMS) 200 mg calcium (500 mg) chewable tablet Take 2 tablets by mouth once daily. 0 4 Active magnesium 250 mg tab Take 1 tablet by mouth once daily. 0 4 Active cholecalciferol (VITAMIN D-3) 2,000 unit capsule Take 2 capsules by mouth once daily. 0 4 Active multivitamin (MVI) tablet Take 2 tablets by mouth once daily. 0 4 Active traZODone (DESYREL) 50 mg tabletIndication s:Insomnia, idiopathic TAKE ONE TABLET BY MOUTH AT BEDTIME 90 Tablet 2 Active tadalafiL (CIALIS;ADCIRCA) 20 mg tabletIndication s:Erectile dysfunction, unspecified erectile dysfunction type TAKE ONE TABLET BY MOUTH EVERY DAY NEEDED FOR ED. TAKE 30 MINUTES BEFORE SEXUAL ACTIVITY. 30 Tablet 4 Active zolpidem CR (AMBIEN CR) 12.5 mg Extended-Release tabletIndication s:Insomnia, unspecified type TAKE ONE TABLET BY MOUTH AT BEDTIME 30 Tablet 5 4 Active Active Problems Problem Noted Date Diagnosed Date Podagra 06/23/2024 Restless leg syndrome 04/15/2016 Status post gastric bypass for obesity 6 Insomnia 12/12/2013 Erectile dysfunction 10/23/2011 Polyp of colon History of colon polyps Resolved Problems Problem Noted Date Diagnosed Date Resolved Date Tobacco abuse 02/22/2010 12/08/2012 Plantar fasciitis 02/22/2010 12/12/2013 Encounters Date Type Department Care Team Description 10/17/2024 7:34 PM LOCATION MAN - 10/17/2024 8:56 PM LOCATION MAN Emergency [facility] [address], [place] [address] Rozina Alba PA Open wound of left foot, initial encounter (Primary Dx) Discharge Disposition: Home Self Care 10/17/2024 Travel from Last 3 Months Immunizations Immunization Administration Dates Next Due COVID-19 vaccine (Moderna 100mcg/0.5mL) PF, MDV 07/10/2021,12/04/2020,11/20/2020,2020,10/20/2020 Influenza A (H1N1), Inactivated 07/22/2009 Influenza Virus, Unspecified 06/04/2020 Influenza, IIV3 (Age >=3 years) 05/28/2010 Influenza, IIV4 (=>6mos) MDV 06/04/2020,06/05/20 19 Influenza, Injectable, Mdck, Quadrivalent, W/preservative 06/02/2021 Tdap 11/26/2011 Family History Medical History Relation Name Comments Diabetes Maternal Uncle Diabetes Mother Cancer Sister Thyroid Anesthesia Problem No Family History Clotting disorder No Family History Relation Name Status Comments Father Alive Maternal Uncle Mother Alive Sister Alive Social History Tobacco Use Types Packs/Day Years Used Date Smoking Tobacco: Every Day Cigarettes Smokeless Tobacco: Never Tobacco Cessation:Ready to Q uit: No; Counseling Given: Yes Alcohol Use Standard Drinks/Week Comments Yes 0 (1 standard drink = 0.6 oz pur e alcohol) occasional PHQ-2 Answer Date Recorded PHQ-2 TOTAL SCORE 0 10/16/2021 Social Connections Answer Date Recorded Frequency of Communication with Friends and Fami ly Not on file 08/22/2021 Financial Resource Strain Answer Date R ecorded Difficulty of Paying Living Expenses Not on file 08/22/2021 Difficulty of Paying Living Expenses Not on file 08/22/2021 Interpersonal Safety Answer Date Record ed Are you being hit, kicked, p ushed or yelled at (see row info)? 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 Not on file Not on file Not on file Obstetrics History Last Filed Vital Signs Vital Sign Reading Time Taken Comments Blood Pressure 138/96 10/17/2024 7:52 PM LOCATION MAN Pulse 88 10/17/2024 7:52 PM LOCATION MAN Temperature 36.7 C (98 F) 10/17/2024 4:46 PM LOCATION MAN Respiratory Rate 18 10/17/2024 7:52 PM LOCATION MAN Oxygen Saturation 94% 10/17/2024 7:52 PM LOCATION MAN Inhaled Oxygen Concentration - - Weight 115.2 kg (254 lb) 10/17/2024 4:46 PM LOCATION MAN Height 190.5 cm (6' 3) 10/17/2024 4:46 PM LOCATION MAN Body Mass Index 31.75 10/17/2024 4:46 PM LOCATION MAN Plan of Treatment Health Maintenance Due Date Last Done Comments HIV for age 15-65 1982 Hepatitis C screening for ag e 18-79 1985 Pneumococcal series for age 50+ (1 of 1 - PCV) 2017 Zoster (shingles) series for age 50+ (1 of 2) 2017 Tetanus booster 11/25/2021 11/26/2011 Depression screening for age 12+ 10/16/2022 10/16/2021, 01/02/2021, 02/20/2019, Additional history exists BMI (ht and wt on same day) for age 18+ 02/08/2023 02/08/2022, 05/31/2019, 04/03/2019, Additional history exists Lipids for age 45-75 03/20/2023 03/20/2018, 04/06/2016, 12/12/2013, Additional history exists COVID-19 vaccine series ( season) 2024 07/10/2021, 12/04/2020, 11/20/2020, Additional history exists Influenza Vaccine (Season Ended) 2025 06/02/2021, 06/04/2020, 06/04/2020, Additional history exists Colonoscopy through age 75 08/11/2027 08/11/2022, Tdap Completed 11/26/2011 Medical Devices Implanted Type Area Head Setter Device Identifier Shelf Expiration Date Model / Serial / Lot 2 Mm Low Profile Screws, Cannulated, Titanium, Partially Threaded Implanted:Qty: 1 on 04/16/2019 by Jason Madrid DPM at [facility]Screws & Plates Left: Foot [employer] AR-8720_10 PT / / Description:2 mm Low Profile Screws, Cannulated, Titanium, Partially Threaded, 10 mm 2.4 Mm Low Profile Plates, Straight Implanted:Qty: 1 on 04/16/2019 by Jason Madrid DPM at [facility]Screws & Plates Left: Foot [employer] [id number] / / Description:2.4 mm Low profi le plates, straight, 6 holes 2.4mm Low Profile Screws, Locking, Titanium Implanted:Qty: 2 on 04/16/2019 by Jason Madrid DPM at [facility]Screws & Plates Left: Foot [employer] [id number] / / Description:2.4mm Low profil e screws, locking, Titanium, 14 mm 2.4mm Low Profile Screws, Locking, Cortex Implanted:Qty: 1 on 04/16/2019 by Jason Madrid DPM at [facility]Screws & Plates Left: [employer] AR-8724-10 / / Description:2.4mm Low profil e screws, locking, cortex 10 mm 2.4mm Low Profile Screws, Locking, Cortex, 12mm Implanted:Qty: 1 on 04/16/2019 by Jason Madrid DPM at [facility]Screws & Plates Left: [employer] AR-8724-12 / / Description:2.4mm Low profil e screws, locking, cortex, 12 mm Ancr Soft Tissue 4.75mm X [email or web address] [id number] Implanted:Qty: 1 on 04/16/2019 by Jason Madrid DPM at [facility] Left: [employer] 11/20/2019 [id number] # / / [id number] Procedures Procedure Name Priority Date/Time Associated Diagnosis Comments COLONOSCOPY 08/11/2022 7:27 AM LOCATION MAN LIPID PANEL W REFLEX MEASURED LDL Routine 03/20/2018 1:37 PM CDT Status post gastric bypass for obesity from Last 3 Months or Most Recently Relevant to Health Maintenance Results * COLONOSCOPY (08/11/2022 7:27 AM LOCATION MAN) 08/11/2022 7:27 AM LOCATION MAN Narrative Transcriptions Noni Selby DO - 08/11/2022 9:14 AM CST Patient Name: Renzo Peterson Procedure Date: 08/11/2022 Gender: Male Date of : 1965 Admit Type: Ambulatory Procedure: Colonoscopy Proceduralist: Noni Selby MD Referring MD: Sterling Servin Indications/Pre-Op Diagnosis: Surveillance: Personal history ofadenomatous polyps on last colonoscopy 5 years ago Medications: Propofol per Anesthesia, MonitoredAnesthesia Care Procedure Description: The patient had risks, benefits and alternatives explained to andgave informed consent. The patient had a stable cardiopulmonary status and judged an adequate candidate for conscious sedation. The endoscope -[id number] was passed through the anus andadvanced to the cecum, identified by appendiceal orifice and ileocecal valve.The colonoscopy was performed without difficulty. The patient toleratedthe procedure well. The quality of the bowel preparation was good. The ileocecal valve, appendiceal orifice, and rectum were photographed. Complications: No immediate complications. Estimated blood loss: None. Estimated Blood Loss & Specimen: Estimated blood loss: none. Specimen collected - None Findings: The digital rectal exam was normal. Pertinent negatives includenormal sphincter tone. Multiple small and large-mouthed diverticula were found in thesigmoid colon. The exam was otherwise without abnormality. Impressions/Post-Op Diagnosis: - Diverticulosis in the sigmoid colon. - The examination was otherwise normal. - No specimens collected. Recommendation: - Discharge patient to home (ambulatory). - Resume previous diet today. - Continue present medications. - Repeat colonoscopy in 7-10 years for surveillance. Noni Selby MD 08/11/2022 9:14:23 AM This report has been signed electronically. Note Initiated On: 08/11/2022 7:27 AM Noni Selby DO PROCEDURE ORD Final Res ult * LIPID PANEL W REFLEX MEASURED LDL (03/20/2018 1:37 PM CDT) CHOLESTEROL,TOTAL 143 100 - 199 mg/dL 03/20/2018 2:03 PM CDT [facility] TRIGLYCERIDES 75 <150 mg/dL 03/20/2018 2:03 PM CDT [facility] HDL CHOLESTEROL 44 >40 mg/dL 8 2:03 PM CDT [facility] NON-HDL CHOLESTEROL 99 <145 mg/dl 03/20/2018 2:03 PM CDT [facility] CHOL/HDL RATIO 3.25 <4.50 03/20/2018 2:03 PM CDT [facility] LDL CHOLESTEROL 84 <=130 mg/dL 03/20/2018 2:03 PM CDT [facility] PROVIDER ORDERED STATUS RANDOM 03/20/2018 2:03 PM CDT [facility] Blood BLOOD SPECIMEN / Unknown Venipuncture / Unknown 03/20/2018 1:37 PM CDT 03/20/2018 1:37 PM CDT Efrain Sewell MD CHEMISTRY Final Re sult [facility] [address] [place] [address] from Last 3 Months or Most Recently Relevant to Health Maintenance Insurance [facility] [employer] [facility] [place] [address] [facility] UND[facility] [address] [place] [address] Advance Directives * Full Code (Latest Code Status on File) Date Activated Date Inactivated Comments 04/16/2019 8:08 AM 04/16/2019 4:23 PM Question Answer Comments Code Status Discussion: Discussed * Full Code Date Activated Date Inactivated Comments 04/16/2019 8:07 AM 04/16/2019 8:08 AM Question Answer Comments Code Status Discussion: Discussed * Full Code Date Activated Date Inactivated Comments 04/18/2018 11:44 AM 04/18/2018 4:43 PM Question Answer Comments Code Status Discussion: Discussed Care Teams Gas Leak Tester Relationship Specialty Start Date End Date Sterling Servin MD [address] [place] [address] [place] [id number] PCP - General Family Practice 10/17/18
== END 2024-12-20 14:55 | disposition home or self-care (01) ==
LOC: ED 14:45
PROVIDERS: Emergency Provider Family Medicine
DX: I80.12 Phlebitis and thrombophlebitis of left femoral vein (principal)
CPT/HCPCS: 93971; 99283